=== PATIENT | male | born 1960 | race Two or more races ===

== ENCOUNTER 2017-02-15 19:54 | Inpatient (IN) | payer BC, OTHER ==
--- NOTE | 2017-02-15 20:18 | ED ---
Skin/Abscess/FB HPI - General Chief complaint: Skin/Abscess/Foreign Body Stated complaint: cyst on leg Time Seen by Provider: 02/15/17 20:10 Source: patient, RN notes reviewed, old records reviewed Mode of arrival: ambulatory Limitations: no limitations - History of Present Illness Initial comments: This is a 56-year-old male presenting to the emergency department with chief complaint of a abscess over the right side for the past 3 days. Patient was initially started with an ingrown hair. Patient reports remove the ingrown hair on Tuesday night however he noticed the redness continued to swell and become firm. Patient reports he went to his primary care provider yesterday and was started on an antibiotic that he takes 4 times a day. Patient reports that he does not know exactly what antibiotic however is most likely to be clindamycin. Patient reports that the area has not changed since taking the antibiotics. He was told to come to the emergency department if the area continued to stay the same or get worse. Patient states that he did not receive any incision and drainage at that time. Patient denies any fever or chills. He reports that there is some increased streaking up the right side.Patient denies any recent fever, chills, shortness of breath, chest pain, back pain, abdominal pain, nausea vomiting, numbness or tingling, dysuria or hematuria, constipation or diarrhea, headaches or visual changes, or any other current symptoms - Related Data Home Medications Medication Instructions Recorded Confirmed Clindamycin [Cleocin] 150 mg PO QID 02/15/17 02/15/17 Mupirocin 2% Oint [Bactroban 2% 1 applic TOPICAL BID 02/15/17 02/15/17 Oint] Allergies Allergy/AdvReac Type Severity Reaction Status Date / Time No Known Allergies Allergy Verified 02/15/17 20:08 Review of Systems ROS Statement: Those systems with pertinent positive or pertinent negative responses have been documented in the HPI. ROS Other: All systems not noted in ROS Statement are negative. Past Medical History Past Medical History: No Reported History History of Any Multi-Drug Resistant Organisms: MRSA Past Surgical History: No Surgical Hx Reported Past Psychological History: No Psychological Hx Reported Smoking Status: Current every day smoker Past Alcohol Use History: None Reported Past Drug Use History: None Reported - Past Family History Mother Family Medical History: Cancer Additional Family Medical History / Comment(s): breast Brother(s) Family Medical History: Cancer Additional Family Medical History / Comment(s): colon ca, Mesothelioma General Exam - General Exam Comments Initial Comments: This is a pleasant 56-year-old male. No acute distress. Limitations: no limitations General appearance: alert, in no apparent distress Head exam: Present: atraumatic, normocephalic, normal inspection Eye exam: Present: normal appearance, PERRL, EOMI. Absent: scleral icterus, conjunctival injection, periorbital swelling ENT exam: Present: normal exam, mucous membranes moist Neck exam: Present: normal inspection. Absent: tenderness, meningismus, lymphadenopathy Respiratory exam: Present: normal lung sounds bilaterally. Absent: respiratory distress, wheezes, rales, rhonchi, stridor Cardiovascular Exam: Present: regular rate, normal rhythm, normal heart sounds. Absent: systolic murmur, diastolic murmur, rubs, gallop, clicks GI/Abdominal exam: Present: soft, normal bowel sounds. Absent: distended, tenderness, guarding, rebound, rigid Extremities exam: Present: normal inspection, full ROM, normal capillary refill , other (Patient has a erythematous abscess over the right anterior thigh measuring approximately 6 cm x 7 cm.). Absent: tenderness, pedal edema, joint swelling, calf tenderness Back exam: Present: normal inspection Neurological exam: Present: alert, oriented X3, CN II-XII intact Psychiatric exam: Present: normal affect, normal mood Skin exam: Present: warm, dry, intact, normal color. Absent: rash Course Vital Signs 02/15/17 02/15/17 02/15/17 20:08 22:01 22:30 Temperature 98.7 F 98.4 F 98.8 F Pulse Rate 71 89 63 Respiratory 18 20 16 Rate Blood Pressure 156/81 154/79 158/89 O2 Sat by Pulse 98 100 100 Oximetry Procedures - Incision & Drainage Consent Obtained: verbal consent Indication: abscess and cellulitis Site: lower extremity (right thigh) Size (cm): 6 Anesthetic Used: lidocaine 1% Amount (mLs): 6 I&D Cleaning Method: Iodine Sterile Field Used?: Yes Scalpel Used: #11 Needle Aspiration Performed?: Yes I&D Drainage Obtained: Pus, Blood Packing: Iodoform Culture Obtained?: Yes Patient Tolerated Procedure: well, no complications Medical Decision Making - Medical Decision Making This is a 56-year-old male presenting to the emergency department with chief complaint of a abscess over the right side for the past 3 days. Patient was initially started with an ingrown hair. Patient reports remove the ingrown hair on Tuesday night however he noticed the redness continued to swell and become firm. Patient reports he went to his primary care provider yesterday and was started on an antibiotic that he takes 4 times a day. Patient reports that he does not know exactly what antibiotic however is most likely to be clindamycin. Patient reports that the area has not changed since taking the antibiotics. He was told to come to the emergency department if the area continued to stay the same or get worse. Patient states that he did not receive any incision and drainage at that time. Patient has significant cellulitis on right thigh. Patient abscess was incised and drained, and culture obtained. PAtient was packed with iodoform. PAtient case discussed with Dr. Narayan, patient will be admitted to observation and started on vancomycin. Patient agrees to admission. - Lab Data Result diagrams: 02/15/17 20:30 02/15/17 20:30 Lab Results 02/15/17 02/15/17 Range/Units 20:30 20:30 WBC 14.2 H (3.8-10.6) k/uL RBC 4.41 (4.30-5.90) m/uL Hgb 15.1 (13.0-17.5) gm/dL Hct 42.5 (39.0-53.0) % MCV 96.4 (80.0-100.0) fL MCH 34.2 (25.0-35.0) pg MCHC 35.4 (31.0-37.0) g/dL RDW 12.6 (11.5-15.5) % Plt Count 277 (150-450) k/uL Neutrophils % 75 % Lymphocytes % 16 % Monocytes % 6 % Eosinophils % 1 % Basophils % 0 % Neutrophils # 10.7 H (1.3-7.7) k/uL Lymphocytes # 2.3 (1.0-4.8) k/uL Monocytes # 0.9 (0-1.0) k/uL Eosinophils # 0.1 (0-0.7) k/uL Basophils # 0.0 (0-0.2) k/uL Sodium 143 (137-145) mmol/L Potassium 3.6 (3.5-5.1) mmol/L Chloride 108 H (98-107) mmol/L Carbon Dioxide 24 (22-30) mmol/L Anion Gap 11 mmol/L BUN 15 (9-20) mg/dL Creatinine 0.64 L (0.66-1.25) mg/dL Est GFR (MDRD) Af Amer >60 (>60 ml/min/1.73 sqM) Est GFR (MDRD) Non-Af >60 (>60 ml/min/1.73 sqM) Glucose 138 H (74-99) mg/dL Calcium 9.1 (8.4-10.2) mg/dL Total Bilirubin 0.8 (0.2-1.3) mg/dL AST 15 L (17-59) U/L ALT 18 L (21-72) U/L Alkaline Phosphatase 80 (38-126) U/L Total Protein 8.1 (6.3-8.2) g/dL Albumin 4.1 (3.5-5.0) g/dL Disposition Clinical Impression: Cellulitis of right thigh Disposition: ADMITTED IP TO THIS [facility] Condition: Stable Time of Disposition: 21:49
[2017-02-15] MEDS ORDERED: SODIUM CHLORIDE 0.9% 1,000 ML IV ONE (20:21)
[2017-02-15 21:01] LABS: Basophils % (A) 0 %; CH 34.1; CHCM 35.5; Eosinophils # (A) 0.1 k/uL (0-0.7); Eosinophils % (A) 1 %; HCT 42.5 % (39.0-53.0); HDW 2.66; HGB 15.1 gm/dL (13.0-17.5); Luc # (Auto) 0.25; Luc % (Auto) 2; Lymphocytes # (A) 2.3 k/uL (1.0-4.8); Lymphocytes % (A) 16 %; MCH 34.2 pg (25.0-35.0); MCHC 35.4 g/dL (31.0-37.0); MCV 96.4 fL (80.0-100.0); Mean Platelet Volume 7.1; Monocytes # (A) 0.9 k/uL (0-1.0); Monocytes % (A) 6 %; Neutrophils # (A) 10.7 k/uL (1.3-7.7); Neutrophils % (A) 75 %; RBC 4.41 m/uL (4.30-5.90); RDW 12.6 % (11.5-15.5); WBC 14.2 k/uL (3.8-10.6); WBC (Perox) 13.62
[2017-02-15 21:15] LABS: ALT 18 U/L (21-72); AST 15 U/L (17-59); Alkaline Phosphatase 80 U/L (38-126); Anion Gap 11 mmol/L; Blood Urea Nitrogen 15 mg/dL (9-20); Calcium 9.1 mg/dL (8.4-10.2); Carbon Dioxide 24 mmol/L (22-30); Chloride 108 mmol/L (98-107); Glucose 138 mg/dL (74-99); Non-African American GFR(MDRD) >60 (>60 ml/min/1.73 sqM); Potassium 3.6 mmol/L (3.5-5.1); Sodium 143 mmol/L (137-145); Total Bilirubin 0.8 mg/dL (0.2-1.3); Total Protein 8.1 g/dL (6.3-8.2)
[2017-02-15] MEDS ORDERED: IV VANCOMYCIN PER PHARMACY 1 EACH MISC MISCELLANE PRN (21:38)
[2017-02-15] MEDS ORDERED: VANCOMYCIN 1,500 MG in SODIUM CHLORIDE 0.9% 250 ML IVPB STA (21:41)
[2017-02-15] MEDS ORDERED: MORPHINE SULFATE 4 MG/ML SYRINGE IVP STA (21:48)
[2017-02-15] MEDS ORDERED: IBUPROFEN 400 MG TAB PO PRN (21:49)
[2017-02-15] MEDS ORDERED: ACETAMINOPHEN TAB 325 MG TAB PO PRN (21:49)
[2017-02-15] MEDS ORDERED: ONDANSETRON 4 MG/2 ML VIAL IVP PRN (21:49)
[2017-02-15] MEDS ORDERED: NALOXONE 0.4 MG/ML 1 ML VIAL IV PRN (21:49)
[2017-02-15] MEDS: SODIUM CHLORIDE 0.9% 1,000 ML IV SCH (21:58)
[2017-02-15] MEDS: KETOROLAC 30 MG/ML 1 ML VIAL IVP PRN (23:29)
[2017-02-16] MEDS: KETOROLAC 30 MG/ML 1 ML VIAL IVP PRN ×2 (06:45→18:57)
[2017-02-16] MEDS: SODIUM CHLORIDE 0.9% 1,000 ML IV SCH ×3 (06:47→21:32)
[2017-02-16] MEDS: MORPHINE SULFATE 4 MG/ML SYRINGE IV PRN ×4 (07:18→22:44)
[2017-02-16] MEDS: VANCOMYCIN 1,500 MG in SODIUM CHLORIDE 0.9% 250 ML IVPB SCH ×2 (07:18→15:17)
[2017-02-16] MEDS: ENOXAPARIN 40 MG/0.4 ML SYRINGE SQ SCH (16:49)
[2017-02-16] MEDS: NICOTINE 21MG/24HR PATCH TRANSDERM SCH (16:49)
--- NOTE | 2017-02-16 17:51 | P.GSCN ---
History of Present Illness Consult date: 02/16/17 Reason for Consult: Right thigh abscess Requesting physician: Gene Palma History of present illness: 56 Years old male presents with pain and swelling of right thigh for last 3 days. He underwent a bedside I and D in the ER yesterday. He has increasing amount of drainage and redness around the right thigh area. Patient attributes this to ingrown hair. He is not diabetic. No prior history of MRSA infections Review of Systems As stated in history of present illness Past Medical History Past Medical History: No Reported History History of Any Multi-Drug Resistant Organisms: MRSA Year Discovered:: ?? MDRO Source:: ?? Past Surgical History: No Surgical Hx Reported Past Anesthesia/Blood Transfusion Reactions: No Reported Reaction Past Psychological History: No Psychological Hx Reported Smoking Status: Current every day smoker Past Alcohol Use History: None Reported Past Drug Use History: None Reported - Past Family History Mother Family Medical History: Cancer Additional Family Medical History / Comment(s): breast Brother(s) Family Medical History: Cancer Additional Family Medical History / Comment(s): colon ca, Mesothelioma Medications and Allergies Home Medications Medication Instructions Recorded Confirmed Type Clindamycin [Cleocin] 150 mg PO QID 02/15/17 02/15/17 History Mupirocin 2% Oint [Bactroban 2% 1 applic TOPICAL BID 02/15/17 02/15/17 History Oint] Allergies Allergy/AdvReac Type Severity Reaction Status Date / Time No Known Allergies Allergy Verified 02/15/17 20:08 Surgical - Exam Vital Signs Temp Pulse Resp BP Pulse Ox 98.7 F 71 18 156/81 98 02/15/17 20:08 02/15/17 20:08 02/15/17 20:08 02/15/17 20:08 02/15/17 20:08 General: Patient is alert and oriented to time, place and person and cooperative with exam. He is not in acute distress. HEENT: No pallor, no icterus, Chest: Bilateral equal breath sounds present. No wheezes, no crackles. Cardiovascular: Regular rate and rhythm. Abdomen: Soft, nontender, nondistended. Integumentary: Bilateral lower extremity chronic venous dermatitis. No active ulcers or discharge. Neurologic: Cranial nerves II-XII intact. Strength upper and lower extremities 5/5. No focal neurologic deficits. Gait is normal. Psychiatric: No anxiety or psychosis. Skin: Right thigh has a 4 x 4 centimeters fluctuant abscess with cellulitis and purulent drainage Results - Labs 02/15/17 20:30 02/15/17 20:30 Abnormal Lab Results - Last 24 Hours (Table) 02/15/17 02/15/17 Range/Units 20:30 20:30 WBC 14.2 H (3.8-10.6) k/uL Neutrophils # 10.7 H (1.3-7.7) k/uL Chloride 108 H (98-107) mmol/L Creatinine 0.64 L (0.66-1.25) mg/dL Glucose 138 H (74-99) mg/dL AST 15 L (17-59) U/L ALT 18 L (21-72) U/L Microbiology - Last 24 Hours (Table) 02/15/17 21:42 Gram Stain - Preliminary Leg - Right Wound Culture - Preliminary Diabetes panel 02/15/17 Range/Units 20:30 Sodium 143 (137-145) mmol/L Potassium 3.6 (3.5-5.1) mmol/L Chloride 108 H (98-107) mmol/L Carbon Dioxide 24 (22-30) mmol/L BUN 15 (9-20) mg/dL Creatinine 0.64 L (0.66-1.25) mg/dL Glucose 138 H (74-99) mg/dL Calcium 9.1 (8.4-10.2) mg/dL AST 15 L (17-59) U/L ALT 18 L (21-72) U/L Alkaline Phosphatase 80 (38-126) U/L Total Protein 8.1 (6.3-8.2) g/dL Albumin 4.1 (3.5-5.0) g/dL Calcium panel 02/15/17 Range/Units 20:30 Calcium 9.1 (8.4-10.2) mg/dL Albumin 4.1 (3.5-5.0) g/dL Pituitary panel 02/15/17 Range/Units 20:30 Sodium 143 (137-145) mmol/L Potassium 3.6 (3.5-5.1) mmol/L Chloride 108 H (98-107) mmol/L Carbon Dioxide 24 (22-30) mmol/L BUN 15 (9-20) mg/dL Creatinine 0.64 L (0.66-1.25) mg/dL Glucose 138 H (74-99) mg/dL Calcium 9.1 (8.4-10.2) mg/dL Adrenal panel 02/15/17 Range/Units 20:30 Sodium 143 (137-145) mmol/L Potassium 3.6 (3.5-5.1) mmol/L Chloride 108 H (98-107) mmol/L Carbon Dioxide 24 (22-30) mmol/L BUN 15 (9-20) mg/dL Creatinine 0.64 L (0.66-1.25) mg/dL Glucose 138 H (74-99) mg/dL Calcium 9.1 (8.4-10.2) mg/dL Total Bilirubin 0.8 (0.2-1.3) mg/dL AST 15 L (17-59) U/L ALT 18 L (21-72) U/L Alkaline Phosphatase 80 (38-126) U/L Total Protein 8.1 (6.3-8.2) g/dL Albumin 4.1 (3.5-5.0) g/dL Assessment and Plan (1) Abscess of right thigh Status: Acute Plan: 1. Incision and drainage of right thigh abscess 2. Aerobic and anaerobic cultures 3. Packing using iodoform 4. Remove packing in 24-48 hours 5. CBC in a.m. 6. Continue IV antibiotics until final cultures are available
[2017-02-16] MEDS ORDERED: fentaNYL (PF) 50 MCG/ML 2 ML AMP ONE (18:16)
[2017-02-16] MEDS ORDERED: MIDAZOLAM 2 MG/2 ML VIAL ONE (18:16)
[2017-02-16] MEDS ORDERED: KETAMINE 10 MG/ML 20 ML VIAL ONE (18:16)
[2017-02-16] MEDS ORDERED: PROPOFOL 10 MG/ML 20 ML VIAL IV ONE (18:16)
[2017-02-16] MEDS ORDERED: LIDOCAINE 1%-EPI 1:100,000 20 ML VIAL SQ ONE (18:35)
[2017-02-16] MEDS ORDERED: IV FLUID CONTINUATION 700 ML IV ONE (18:36)
[2017-02-16] MEDS ORDERED: HYDROGEN PEROXIDE BOTTLE TOPICAL ONE (18:40)
--- NOTE | 2017-02-16 18:46 | P.OP ---
Date of Procedure: 02/16/17 Preoperative Diagnosis: Right thigh abscess Postoperative Diagnosis: Same Procedure(s) Performed: Incision and drainage of right thigh abscess Implants: Anesthesia: MAC Surgeon: Maria Eugenia Adams Estimated Blood Loss (ml): 5 Pathology: other Condition: stable Disposition: PACU Indications for Procedure: 56 years old male presents with right high abscess. Informed consent obtained and patient elected to undergo incision and drainage. Operative Findings: Right thigh abscess :deep subcutaneous pocket extending up to the anterior thigh fascia. Description of Procedure: The patient was brought to the operating room and placed in supine position and IV sedation was given as per anesthesia team. A timeout was performed to verify correct patient, correct procedure and correct site. 10 mL of local anesthetic was infiltrated to create a local block. A 1.5 cm skin incision was made along the previous stab incision. This was deepened through the subcu breast tissue. Large pocket of purulent material drained. Aerobic and anaerobic cultures sent. The cavity measured 3 x 2 x 1 cm and extended deep in the subcutis tissue up to the fascia. Hemostasis was checked. The cavity was irrigated with half-strength hydrogen peroxide. The cavity was then packed with iodoform. Clean dressings applied patient tolerated the procedure well and was taken to postanesthesia care unit in stable condition
--- NOTE | 2017-02-16 18:59 | HP ---
DATE OF ADMISSION: 02/15/2017 PRESENTING COMPLAINT: Right thigh abscess. HISTORY OF PRESENTING COMPLAINT: This is a 56-year-old patient of Dr. Moreno, who has an unremarkable past medical history. Patient is a smoker. Patient 5 days ago noticed a hair folliculitis on the right thigh that significantly grew. Became an abscess. Some drainage was carried out in the ER. Patient was put on IV vancomycin. Denies any fever. Tender. Did tolerate some diet. REVIEW OF SYSTEMS: CONSTITUTIONAL: None. HEENT: None. RESPIRATORY: None. CARDIOVASCULAR: None. GASTROINTESTINAL: None. GENITOURINARY: None. MUSCULOSKELETAL: Lower back pain. DERMATOLOGICAL: None. HEMATOLOGIC: None. LYMPHATICS: None. PSYCHIATRY: None. NEUROLOGICAL: None. PAST MEDICAL HISTORY: Questionable MRSA. PAST SURGICAL HISTORY: None. SOCIAL HISTORY: Smokes about 1/2 pack a day. [place] [employer] [place] No alcohol. Lives with brother. FAMILY HISTORY: Breast cancer. HOME MEDICATIONS: 1. Mupirocin 2%. 2. Bactroban topical b.i.d. 3. Clindamycin 150 mg q.i.d. ALLERGIES: None. On examination, temperature 97.9, pulse rate 55, respirations 16, blood pressure 120/60, pulse ox 98% on room air. GENERAL APPEARANCE: Sitting up, not in distress. EYES: Pupils equal. Conjunctivae normal. HEENT: Oral cavity normal. NECK: JVD not raised. Mass not palpable. RESPIRATORY: Effort normal. LUNGS: Fair air entry. CARDIOVASCULAR: First and second sounds normal. No edema. ABDOMEN: Soft. Nontender. Liver and spleen not palpable. PSYCHIATRY: Alert and oriented x3. Mood and affect normal. EXTREMITIES: Abscess on right thigh, some drainage on squeezing. INVESTIGATIONS: White count 14.2, hemoglobin 15.1, potassium 3.6. BUN 15, creatinine 0.64. ASSESSMENT: 1. Right thigh abscess started to drain with elevated white count. 2. Chronic nicotine dependence. Patient is a smoker. 3. Leukocytosis, source infection. PLAN: Given IV vancomycin. Will add scheduled antiinflammatory. Get surgical opinion to see if patient needs to be drained any further. Patient was counseled against smoking. Given a nicotine patch.
[2017-02-16] MEDS: NAPROXEN 250 MG TAB PO SCH (21:32)
[2017-02-17] MEDS: VANCOMYCIN 1,500 MG in SODIUM CHLORIDE 0.9% 250 ML IVPB SCH ×4 (00:01→23:57)
[2017-02-17] MEDS ORDERED: VANCOMYCIN TROUGH DUE 1 EACH MISC MISCELLANE ONE (07:00)
[2017-02-17] MEDS: KETOROLAC 30 MG/ML 1 ML VIAL IVP PRN ×4 (07:50→23:57)
[2017-02-17] MEDS: MORPHINE SULFATE 4 MG/ML SYRINGE IV PRN ×4 (07:52→21:03)
[2017-02-17] MEDS: NAPROXEN 250 MG TAB PO SCH ×2 (07:58→21:08)
[2017-02-17] MEDS: ENOXAPARIN 40 MG/0.4 ML SYRINGE SQ SCH (07:58)
[2017-02-17] MEDS: NICOTINE 21MG/24HR PATCH TRANSDERM SCH (07:59)
[2017-02-17 08:08] LABS: Basophils % (A) 0 %; CH 33.8; CHCM 33.8; Eosinophils # (A) 0.2 k/uL (0-0.7); Eosinophils % (A) 3 %; HCT 39.2 % (39.0-53.0); HDW 2.62; Luc # (Auto) 0.17; Luc % (Auto) 3; Lymphocytes # (A) 2.4 k/uL (1.0-4.8); Lymphocytes % (A) 35 %; MCH 33.2 pg (25.0-35.0); MCHC 33.1 g/dL (31.0-37.0); MCV 100.4 fL (80.0-100.0); Mean Platelet Volume 7.2; Monocytes # (A) 0.4 k/uL (0-1.0); Monocytes % (A) 6 %; Neutrophils # (A) 3.8 k/uL (1.3-7.7); Neutrophils % (A) 54 %; RDW 13.1 % (11.5-15.5); WBC 6.9 k/uL (3.8-10.6); WBC (Perox) 7.41
[2017-02-17 08:22] LABS: Anion Gap 6 mmol/L; Blood Urea Nitrogen 11 mg/dL (9-20); Calcium 8.5 mg/dL (8.4-10.2); Carbon Dioxide 22 mmol/L (22-30); Chloride 113 mmol/L (98-107); Glucose 93 mg/dL (74-99); Non-African American GFR(MDRD) >60 (>60 ml/min/1.73 sqM); Potassium 4.1 mmol/L (3.5-5.1); Sodium 141 mmol/L (137-145)
[2017-02-17] MEDS: SODIUM CHLORIDE 0.9% 1,000 ML IV SCH ×2 (10:53→21:07)
--- NOTE | 2017-02-17 15:40 | P.PN ---
Subjective 56-year-old seen and examined. Patient is postop on February 16 incision and drainage of right thigh abscess. Currently has a dressing which is dry to the right thigh. Patient states pain medication effective for pain control. Patient gives a history of having pain and swelling in the right thigh started 3 days ago. Patient was seen in the emergency room on the and did undergo a bedside incision and drainage. Patient stated that there was an increase amount of drainage and redness around the right thigh area. Patient contributes this occurring 20 and room here. Patient is not diabetic and has no prior history of MRSA infection Objective - Vital Signs Vital signs: Vital Signs Temp 97.9 F 02/17/17 14:45 Pulse 57 L 02/17/17 14:45 Resp 20 02/17/17 14:45 BP 136/75 02/17/17 14:45 Pulse Ox 96 02/17/17 14:45 Intake & Output 02/16/17 02/17/17 02/17/17 18:59 06:59 18:59 Intake Total 100 200 730 Output Total 5 Balance 95 200 730 Intake: IV 100 200 Intake, IV Titration 250 Amount Vancomycin 1,500 mg In 250 Sodium Chloride 0.9% 250 ml @ 125 mls/hr IVPB Q8HR [facility] Rx#:[id number] Oral 480 Output: Estimated Blood Loss 5 Other: Voiding Method Toilet Toilet # Voids 3 2 3 - Exam Physical exam Pleasant 56-year-old gentleman resting in bed no new events noted denies dizziness lightheadedness chest pain Lungs essentially clear adequate air movement Heart S1-S2 audible regular Abdomen soft nontender no nausea no vomiting distended Extremity dressing to the right thigh dry right thigh soft palpable pedal pulses right leg warm to touch adequate sensation - Labs CBC & Chem 7: 02/17/17 07:29 02/17/17 07:29 Labs: Abnormal Lab Results - Last 24 Hours (Table) 02/17/17 02/17/17 Range/Units 07:29 07:29 RBC 3.90 L (4.30-5.90) m/uL MCV 100.4 H (80.0-100.0) fL Chloride 113 H (98-107) mmol/L Creatinine 0.64 L (0.66-1.25) mg/dL Microbiology - Last 24 Hours (Table) 02/16/17 18:30 Gram Stain - Preliminary Thigh - Right Wound Culture - Preliminary 02/16/17 18:30 Anaerobic Culture - Preliminary Thigh - Right 02/15/17 20:30 Blood Culture - Preliminary Blood No Growth after 24 hours 02/15/17 21:42 Gram Stain - Preliminary Leg - Right Wound Culture - Preliminary Assessment and Plan Plan: Impression Status post incision and drainage of a right thigh abscess done on February 16 History of a bedside incision and drainage in the emergency room on February 15 failed outpatient treatment No history of MRSA Plan Follow up on the wound cultures IV antibiotics as ordered Pain control DVT and GI prophylaxis Further surgical recommendations pending Kaylynn Lopes dictating for Dr. Adams the plan of care was discussed with the attending
--- NOTE | 2017-02-17 16:44 | P.PN ---
Progress Note - Text DATE OF SERVICE: 02/17/2017 PRESENTING COMPLAINT: right thigh abscess failed outpatient treatment. INTERVAL HISTORY: This is a patient who presented with right thigh pain and cellulitis, is status post incision and drainage of right thigh abscess. Lying in bed, no acute distress, states pain is well controlled, ambulatory in the room, tolerating his diet, moved his bowels today. REVIEW OF SYSTEMS: Done for constitutional ,cardiovascular, GI, pulmonary, integument with relevant findings as above. CURRENT MEDICATIONS Motrin, Toradol, Naprosyn, nicotine patch, vancomycin. PHYSICAL EXAM: VITAL SIGNS: Temperature 97.7, pulse 51 respiratory rate 18, blood pressure 120/ 62, oxygen saturation 99% on room air. GENERAL APPEARANCE:. Lying in bed, appears comfortable. EYES: Pupils equal. Conjunctiva normal. NECK: JVD not raised. Mass not palpable. RESPIRATORY: Respiratory effort normal. Lungs clear to auscultation. CARDIOVASCULAR: First and second sounds normal. No edema. ABDOMEN: Soft. Liver and spleen not palpable. No tenderness. No mass palpable. PSYCHIATRY: Alert and oriented x3. Mood and affect normal. NEUROLOGICAL: Cranial nerves grossly intact. No facial asymmetry. Power and sensation grossly intact INTEGUMENT: Right thigh with surgical dressing in place no drainage noted on dressing. INVESTIGATIONS: White count 6.9, hemoglobin 13.0 Thigh wound culture in progress ASSESSMENT: Right thigh abscess status post incision and drainage. Chronic nicotine dependence, patient is a smoker. Leukocytosis, cultures pending. PLAN : Continue current medication and treatment plan. will follow closely PROVISIONING ANALYST statement: Patient was seen and examined by nurse practitioner Maribel Hwang in all elements of the case discussed with attending is Dr. Palma
[2017-02-17 23:27] VITALS: RESP 16
[2017-02-18] MEDS: MORPHINE SULFATE 4 MG/ML SYRINGE IV PRN (04:40)
[2017-02-18] MEDS: KETOROLAC 30 MG/ML 1 ML VIAL IVP PRN (06:28)
[2017-02-18 07:31] VITALS: BP 126/74; PULSE 50; TEMP 97.6
--- NOTE | 2017-02-18 07:38 | PN ---
DATE OF SERVICE: 02/17/2017 ATTENDING NOTE: This patient was seen and examined by me. I reviewed the note of my nurse practitioner, Ms. Hwang. Discussed and reviewed. Additional findings below. This patient right thigh abscess status post I&D. Cultures are pending. Pain is better controlled. On examination, dressing on the right eye. LUNGS: Clear. CARDIOVASCULAR: First and second sounds normal. INVESTIGATIONS: White count is normalized. ASSESSMENT: Right thigh abscess, status post I&D. PLAN: Continue with antibiotics. Await culture results. Dressing changes as per surgery. Follow.
[2017-02-18] MEDS: VANCOMYCIN 1,500 MG in SODIUM CHLORIDE 0.9% 250 ML IVPB SCH (08:15)
[2017-02-18] MEDS: NICOTINE 21MG/24HR PATCH TRANSDERM SCH (08:43)
[2017-02-18] MEDS: ENOXAPARIN 40 MG/0.4 ML SYRINGE SQ SCH (08:43)
[2017-02-18] MEDS: NAPROXEN 250 MG TAB PO SCH (08:44)
[2017-02-18 10:24] LABS: Basophils % (A) 1 %; CHCM 33.5; Eosinophils # (A) 0.2 k/uL (0-0.7); Eosinophils % (A) 4 %; HCT 42.3 % (39.0-53.0); HDW 2.58; HGB 13.8 gm/dL (13.0-17.5); Luc # (Auto) 0.08; Luc % (Auto) 1; Lymphocytes # (A) 1.4 k/uL (1.0-4.8); Lymphocytes % (A) 23 %; MCH 33.2 pg (25.0-35.0); MCHC 32.5 g/dL (31.0-37.0); Macrocytosis Slight; Mean Platelet Volume 7.2; Monocytes # (A) 0.4 k/uL (0-1.0); Monocytes % (A) 6 %; Neutrophils % (A) 66 %; RBC 4.15 m/uL (4.30-5.90); RDW 13.1 % (11.5-15.5); WBC 6.1 k/uL (3.8-10.6); WBC (Perox) 6.54
[2017-02-18 10:44] LABS: Anion Gap 9 mmol/L; Blood Urea Nitrogen 13 mg/dL (9-20); Calcium 8.8 mg/dL (8.4-10.2); Carbon Dioxide 22 mmol/L (22-30); Chloride 111 mmol/L (98-107); Glucose 98 mg/dL (74-99); Non-African American GFR(MDRD) >60 (>60 ml/min/1.73 sqM); Sodium 142 mmol/L (137-145)
[2017-02-18] MEDS: SODIUM CHLORIDE 0.9% 1,000 ML IV SCH (11:21)
--- NOTE | 2017-02-18 11:28 | P.PN ---
Subjective 56-year-old male being seen this morning pleasant cooperative states less pain in in the right thigh . Patient is postop incision and drainage of a right thigh abscess deep subcutaneous pocket extending up to the anterior thigh fascia done on February 16. The right dressing was removed from the thigh packing in place removed noted the right thigh soft less tender . A scant amount of drainage noted from the dressing . Objective - Vital Signs Vital signs: Vital Signs Temp 97.6 F 02/18/17 07:00 Pulse 50 L 02/18/17 07:00 Resp 16 02/18/17 07:00 BP 126/74 02/18/17 07:00 Pulse Ox 98 02/18/17 07:00 Intake & Output 02/17/17 02/18/17 02/18/17 18:59 06:59 18:59 Intake Total 1480 600 Balance 1480 600 Weight 77.111 kg Intake: Intake, IV Titration 1000 Amount Sodium Chloride 0.9% 1, 500 000 ml @ 100 mls/hr IV . Q10H [facility] Rx#:[id number] Vancomycin 1,500 mg In 500 Sodium Chloride 0.9% 250 ml @ 125 mls/hr IVPB Q8HR [facility] Rx#:[id number] Oral 480 600 Other: Voiding Method Toilet # Voids 3 1 - Exam Physical exam 56-year-old male sitting up in bed appears in no acute distress states less pain in the right thigh Lungs essentially clear adequate air movement on room air Heart S1-S2 audible regular denying chest pain abdomen soft nontender reports no nausea vomiting Extremities no pedal edema. Left lower extremity unremarkable. Dressing to the right thigh dry - Labs CBC & Chem 7: 02/18/17 10:06 02/17/17 07:29 Labs: Abnormal Lab Results - Last 24 Hours (Table) 02/18/17 Range/Units 10:06 RBC 4.15 L (4.30-5.90) m/uL MCV 102.0 H (80.0-100.0) fL Microbiology - Last 24 Hours (Table) 02/15/17 20:30 Blood Culture - Preliminary Blood No Growth after 48 hours 02/16/17 18:30 Gram Stain - Preliminary Thigh - Right Wound Culture - Preliminary Assessment and Plan Plan: Impression Status post incision and drainage of a right thigh abscess done on February 16 History of a bedside incision and drainage in the emergency room on February 15 failed outpatient treatment No history of MRSA Plan Follow up on the wound cultures antibiotics as ordered Pain control DVT and GI prophylaxis From a surgical perspective the patient is felt to be appropriate to be discharged defer to the timing of the discharge to the attending Wound care Aquacel AG rope to be applied to the right by puncture site change every 48 hours Follow-up with Dr. adams in 2 weeks Kaylynn Lopes dictating for Dr. Adams the plan of care was discussed with the attending
--- NOTE | 2017-02-19 22:05 | DS ---
DATE OF ADMISSION: 02/15/2017 DATE OF DISCHARGE: 02/18/2017 FINAL DIAGNOSIS(ES): 1. Acute right thigh abscess, status post I&D growing ( ) Strep. 2. Chronic nicotine dependence, the patient is a smoker. 3. Leukocytosis, secondary to abscess. HOSPITAL COURSE: This patient presented with right thigh abscess, status post I&D by Dr. Adams. It was doing better. Patient ( ) above, ( ) Streptococcus. Doing much better, up and about. On exam, lungs are clear. CARDIOVASCULAR: First and second sounds are normal. The patient right thigh incision healing well. DISCHARGE MEDICATIONS: 1. Bactroban 2% ointment topical b.i.d. 2. Naproxen 250 mg b.i.d. 20 tablets. 3. Nicotine patch. 4. Bactrim DS 1 tablet q.12 20 tablets. Follow-up with Dr. Adams on 02/22/2017, follow-up with Dr. Garcia Moreno on 02/25/2017. Labs, and CBC, BMP in one week. Discharge planning more than 35 minutes. Dressing changes per surgery.
== END 2017-02-18 11:49 | disposition home or self-care (01) | DRG 603 ==
LOC: EC 19:54 → 4MS4W 21:55 → OBSVTOIN 21:55
PROVIDERS: ADMIT Hospitalist; ATTEND Hospitalist
PROC: 0H9HXZZ Drainage of Right Upper Leg Skin, External Approach (ICD-10-PCS; 2017-02-15)
PROC: 0J9L3ZZ Drainage of Right Upper Leg Subcutaneous Tissue and Fascia, Percutaneous Approach (ICD-10-PCS; principal; 2017-02-16 17:44)
DX: L03.115 Cellulitis of right lower limb (principal); B95.4 Other streptococcus as the cause of diseases classified elsewhere; L02.415 Cutaneous abscess of right lower limb; D72.829 Elevated white blood cell count, unspecified; F17.200 Nicotine dependence, unspecified, uncomplicated; L73.1 Pseudofolliculitis barbae; M54.5 Low back pain; L73.9 Follicular disorder, unspecified; Z80.0 Family history of malignant neoplasm of digestive organs; Z80.3 Family history of malignant neoplasm of breast; Z71.6 Tobacco abuse counseling; Z86.14 Personal history of Methicillin resistant Staphylococcus aureus infection; Z80.9 Family history of malignant neoplasm, unspecified
CPT/HCPCS: 10061; 36415; 80048; 80053; 80202; 85025; 87040; 87070; 87075; 87205; 96361; 96365; 96375; 99284

== ENCOUNTER 2018-07-03 12:17 | Emergency (ER) | payer OTHER ==
[2018-07-03 12:34] VITALS: BP 179/81; PULSE 71; RESP 18; TEMP 98
[2018-07-03] MEDS ORDERED: HYDROcodone/APAP 5-325MG 1 EACH TAB PO STA (13:43)
[2018-07-03] MEDS ORDERED: TETANUS-DIPHTHERIA TOX (PF) 0.5 ML VIAL IM ONE (13:57)
--- NOTE | 2018-07-03 14:14 | ED ---
General Adult HPI - General Chief complaint: Burn/Smoke Inhalation Stated complaint: Chemical Burn Time Seen by Provider: 07/03/18 13:35 Source: patient, RN notes reviewed Mode of arrival: ambulatory Limitations: no limitations - History of Present Illness Initial comments: 58-year-old male presents to the emergency department for a chief complaint of burn 1 hour. Patient states he was at work using a car adhesive when he accidentally got glue on his left hand. Patient states he immediately tried to rip off the glue and ripped his skin off with it as it was very hot. Patient states she also got some glue on his fourth and fifth digits of his right hand. He states the hand immediately began swelling. He [facility] go to [facility] but they were unable to remove the glue so sent him to the emergency department. He denies getting glue anywhere else. He denies any other injuries. Patient has no other complaints at this time including shortness of breath, chest pain, abdominal pain, nausea or vomiting, headache, or visual changes. - Related Data Home Medications Medication Instructions Recorded Confirmed Mupirocin 2% Oint [Bactroban 2% 1 applic TOPICAL BID 02/15/17 02/15/17 Oint] Previous Rx's Medication Instructions Recorded Naproxen [Naprosyn] 250 mg PO BID #20 tab 02/18/17 Nicotine 21Mg/24Hr Patch [Habitrol] 1 patch TRANSDERM DAILY #14 patch 02/18/17 Sulfamethox-Tmp 800-160Mg [Bactrim 1 tab PO Q12HR #20 tab 02/18/17 DS 800-160 mg] HYDROcodone/APAP 5-325MG [[place] 1 tab PO Q6HR PRN #10 tab 07/03/18 5-325] SILVER sulfADIAZINE Cream 1 applic TOPICAL BID #100 gram 07/03/18 [Silvadene 1% Cream] Allergies Allergy/AdvReac Type Severity Reaction Status Date / Time No Known Allergies Allergy Verified 07/03/18 12:33 Review of Systems ROS Statement: Those systems with pertinent positive or pertinent negative responses have been documented in the HPI. ROS Other: All systems not noted in ROS Statement are negative. Past Medical History Past Medical History: No Reported History History of Any Multi-Drug Resistant Organisms: MRSA Date of last positivie culture/infection: 09/04/09 MDRO Source:: Unknown Past Surgical History: No Surgical Hx Reported Past Anesthesia/Blood Transfusion Reactions: No Reported Reaction Past Psychological History: No Psychological Hx Reported Smoking Status: Current every day smoker Past Alcohol Use History: None Reported Past Drug Use History: None Reported - Past Family History Mother Family Medical History: Cancer Additional Family Medical History / Comment(s): breast Brother(s) Family Medical History: Cancer Additional Family Medical History / Comment(s): colon ca, Mesothelioma General Exam Limitations: no limitations General appearance: alert, in no apparent distress Head exam: Present: atraumatic, normocephalic, normal inspection Eye exam: Present: normal appearance, PERRL, EOMI. Absent: scleral icterus, conjunctival injection, periorbital swelling ENT exam: Present: normal exam, mucous membranes moist Neck exam: Present: normal inspection. Absent: tenderness, meningismus, lymphadenopathy Respiratory exam: Present: normal lung sounds bilaterally. Absent: respiratory distress, wheezes, rales, rhonchi, stridor Cardiovascular Exam: Present: regular rate, normal rhythm, normal heart sounds. Absent: systolic murmur, diastolic murmur, rubs, gallop, clicks GI/Abdominal exam: Present: soft, normal bowel sounds. Absent: distended, tenderness, guarding, rebound, rigid Extremities exam: Present: tenderness (Tenderness of left hand as well as right fourth and fifth digits), normal capillary refill (Capillary refill less than 2 seconds and radial pulse 2+ in the left upper extremity.), other (Patient has glue on the dorsal radial aspect of left hand extending into the palmar aspect. There is mild avulsion of skin of the dorsum. Serous weeping present. No evidence of infection such as cellulitic changes or purulent drainage. Underlying skin is erythematous. Patient also has minor vesicles noted to the fourth and fifth digit about 1 cm x 1 cm.). Absent: full ROM (She does have flexion and extension of all digits but is unable to make a fist due to pain and swelling at this time.) Neurological exam: Present: alert, oriented X3, CN II-XII intact Psychiatric exam: Present: normal affect, normal mood Course Vital Signs 07/03/18 12:32 Temperature 98 F Pulse Rate 71 Respiratory 18 Rate Blood Pressure 179/81 O2 Sat by Pulse 96 Oximetry Medical Decision Making - Medical Decision Making 58-year-old male presents to the emergency department for a chief complaint of burn is 1 hour. Patient had an incident with a glue gun at work and did get hot glue on the dorsum of his left hand extending into the palmar aspect. Patient did go to [facility] and had Silvadene applied. On exam patient does have glue noted to the dorsum of the hand as well as a partial thickness burn. Underlying skin is erythematous with serous drainage and is tender. Glue was able to be removed with forceps without significant difficulty. Wound was covered with Silvadene and covered with nonstick gauze. Patient was given a prescription for Silvadene to apply twice daily and he will rewrap it twice daily as well which he is aware of. He will continue the Silvadene. He will monitor for any signs of infection and return if these occur. Dr. Sullivan also saw the patient. Disposition Clinical Impression: Burn Disposition: HOME SELF-CARE Condition: Good Additional Instructions: Please clean wound at least once per day. Please apply Silvadene and rewrap twice per day. Please monitor for any signs of infection such as spreading or streaking redness or purulent drainage and return if this occurs. Follow-up with primary care in 1-2 days. Return to the emergency department if you have any worsening symptoms. Prescriptions: HYDROcodone/APAP 5-325MG [[place] 5-325] 1 tab PO Q6HR PRN #10 tab PRN Reason: Pain SILVER sulfADIAZINE Cream [Silvadene 1% Cream] 1 applic TOPICAL BID #100 gram Is patient prescribed a controlled substance at d/c from ED?: No Referrals: Garcia Moreno DO [Primary Care Provider] - 1-2 days Time of Disposition: 14:09
== END 2018-07-03 15:40 | disposition home or self-care (01) ==
LOC: EC 12:17
DX: T52.8X1A Toxic effect of other organic solvents, accidental (unintentional), initial encounter (principal); T23.552A Corrosion of first degree of left palm, initial encounter; T32.0 Corrosions involving less than 10% of body surface; F17.200 Nicotine dependence, unspecified, uncomplicated; Z23 Encounter for immunization; Z86.14 Personal history of Methicillin resistant Staphylococcus aureus infection; Y92.69 Other specified industrial and construction area as the place of occurrence of the external cause; Y99.0 Civilian activity done for income or pay
CPT/HCPCS: 16000; 90471; 90714; 99283

== ENCOUNTER 2018-07-07 15:39 | Emergency (ER) | payer OTHER ==
[2018-07-07 15:49] VITALS: RESP 18
--- NOTE | 2018-07-07 16:04 | ED ---
General Adult HPI - General Chief complaint: Recheck/Abnormal Lab/Rx Stated complaint: hand injury Source: patient Mode of arrival: ambulatory Limitations: no limitations - History of Present Illness Initial comments: Dictation was produced using [employer] dictation software. please excuse any grammatical, word or spelling errors. Chief Complaint: 58-year-old male with no significant past medical history presents with swelling to the left hand. 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 States that he burned his hand with hot glue on Tuesday. Patient had his burn evaluated after the event. He went for a follow-up appointment with [facility] earlier today and was told to come to the emergency department for concerns of infection. Patient has any constitutional symptoms. He does report that over the last 48 hours he had significant swelling to his left upper extremity from the mid forearm down to the PIPs. He also does report worsening pain. The ROS documented in this emergency department record has been reviewed and confirmed by me. Those systems with pertinent positive or negative responses have been documented in the HPI. All other systems are other negative and/or noncontributory. - Related Data Previous Rx's Medication Instructions Recorded HYDROcodone/APAP 5-325MG [[place] 1 tab PO Q4HR PRN 3 Days #18 tab 07/07/18 5-325] Allergies Allergy/AdvReac Type Severity Reaction Status Date / Time No Known Allergies Allergy Verified 07/07/18 16:24 Review of Systems ROS Statement: Those systems with pertinent positive or pertinent negative responses have been documented in the HPI. ROS Other: All systems not noted in ROS Statement are negative. Past Medical History Past Medical History: No Reported History History of Any Multi-Drug Resistant Organisms: MRSA Date of last positivie culture/infection: 09/04/09 MDRO Source:: Unknown Past Surgical History: No Surgical Hx Reported Past Anesthesia/Blood Transfusion Reactions: No Reported Reaction Past Psychological History: No Psychological Hx Reported Smoking Status: Current every day smoker Past Alcohol Use History: None Reported Past Drug Use History: None Reported - Past Family History Mother Family Medical History: Cancer Additional Family Medical History / Comment(s): breast Brother(s) Family Medical History: Cancer Additional Family Medical History / Comment(s): colon ca, Mesothelioma General Exam - General Exam Comments Initial Comments: PHYSICAL EXAM: General Impression: Alert and oriented x3, not in acute distress HEENT: Normocephalic atraumatic, extra-ocular movements intact, pupils equal and reactive to light bilaterally, mucous membranes moist. Cardiovascular: Heart regular rate and rhythm, S1&S2 audible, no murmurs, rubs or gallops Chest: Lungs clear to auscultation bilaterally, no rhonchi, no wheeze, no rales Abdomen: Bowel sounds present, abdomen soft, non-tender, non-distended, no organomegaly Musculoskeletal: Pulses present and equal in all extremities, no peripheral edema Motor: Power 5/5 bilaterally, no focal deficits noted Neurological: CN II-XII grossly intact, no focal motor or sensory deficits noted Skin: Less than 1% second-degree burn to the dorsum of the left hand. None of the doan are circumferential. He does have some blistering to the radial index finger. Skin is warm to the touch. No significant erythema in the area. There is pitting edema Psych: Normal affect and mood Limitations: no limitations Course Vital Signs 07/07/18 15:45 Temperature 97.9 F Pulse Rate 63 Respiratory 18 Rate Blood Pressure 161/88 O2 Sat by Pulse 100 Oximetry Medical Decision Making - Medical Decision Making ED course: 58-year-old male presents from [employer] [facility] for evaluation of left hand wound. Vital signs upon arrival shows blood pressure 161/88, rest of vital signs within acceptable limits. His examination does not elicit any palpable crepitus. X-ray was obtained showing findings within normal limits. Labs were obtained showing no acute processes. This point patient is having dependent edema of the left upper extremity. No overt signs of infection at this time. At this point I would withhold any antibiotic treatment. However patient must be followed up with burn specialist. Patient given follow-up information for [facility] burn clinic. Patient given prescription for [place] for pain control. - Lab Data Result diagrams: 07/07/18 17:13 07/07/18 17:13 Lab Results 07/07/18 07/07/18 Range/Units 17:13 17:13 WBC 6.7 (3.8-10.6) k/uL RBC 4.65 (4.30-5.90) m/uL Hgb 15.6 (13.0-17.5) gm/dL Hct 46.4 (39.0-53.0) % MCV 99.9 (80.0-100.0) fL MCH 33.6 (25.0-35.0) pg MCHC 33.7 (31.0-37.0) g/dL RDW 12.7 (11.5-15.5) % Plt Count 219 (150-450) k/uL Neutrophils % 63 % Lymphocytes % 23 % Monocytes % 7 % Eosinophils % 4 % Basophils % 1 % Neutrophils # 4.2 (1.3-7.7) k/uL Lymphocytes # 1.5 (1.0-4.8) k/uL Monocytes # 0.5 (0-1.0) k/uL Eosinophils # 0.3 (0-0.7) k/uL Basophils # 0.0 (0-0.2) k/uL Sodium 142 (137-145) mmol/L Potassium 4.5 (3.5-5.1) mmol/L Chloride 108 H (98-107) mmol/L Carbon Dioxide 23 (22-30) mmol/L Anion Gap 11 mmol/L BUN 12 (9-20) mg/dL Creatinine 0.65 L (0.66-1.25) mg/dL Est GFR (CKD-EPI)AfAm >90 (>60 ml/min/1.73 sqM) Est GFR (CKD-EPI)NonAf >90 (>60 ml/min/1.73 sqM) Glucose 101 H (74-99) mg/dL Calcium 9.3 (8.4-10.2) mg/dL Disposition Clinical Impression: Burn Disposition: HOME SELF-CARE Condition: Good Instructions: Second Degree Burn (ED) Additional Instructions: [facility] [address] [place] [id number] Burn, 6B: Wound Care, 2Z: Prescriptions: HYDROcodone/APAP 5-325MG [[place] 5-325] 1 tab PO Q4HR PRN 3 Days #18 tab PRN Reason: Pain Is patient prescribed a controlled substance at d/c from ED?: Yes Referrals: Garcia Moreno DO [Primary Care Provider] - 1-2 days Time of Disposition: 17:46
--- NOTE | 2018-07-07 16:38 | XR ---
EXAMINATION TYPE: XR hand complete LT DATE OF EXAM: 07/07/2018 COMPARISON: NONE HISTORY: Burned with hot glue. Pain. TECHNIQUE: 3 views FINDINGS: I see no fracture nor dislocation. Joint spaces are fairly normal. There are no erosions. I see no focal bone destruction. There is slight hyperextension deformity of the MP joint of the thumb . IMPRESSION: No acute abnormality of the left hand. No sign of osteomyelitis.
[2018-07-07 17:24] LABS: Basophils % (A) 1 %; Eosinophils # (A) 0.3 k/uL (0-0.7); Eosinophils % (A) 4 %; HCT 46.4 % (39.0-53.0); HGB 15.6 gm/dL (13.0-17.5); Lymphocytes # (A) 1.5 k/uL (1.0-4.8); Lymphocytes % (A) 23 %; MCH 33.6 pg (25.0-35.0); MCHC 33.7 g/dL (31.0-37.0); MCV 99.9 fL (80.0-100.0); Mean Platelet Volume 7.5; Monocytes # (A) 0.5 k/uL (0-1.0); Monocytes % (A) 7 %; Neutrophils # (A) 4.2 k/uL (1.3-7.7); Neutrophils % (A) 63 %; Platelet Count 219 k/uL (150-450); RBC 4.65 m/uL (4.30-5.90); RDW 12.7 % (11.5-15.5); WBC 6.7 k/uL (3.8-10.6)
[2018-07-07 17:33] LABS: Anion Gap 11 mmol/L; Blood Urea Nitrogen 12 mg/dL (9-20); Calcium 9.3 mg/dL (8.4-10.2); Carbon Dioxide 23 mmol/L (22-30); Chloride 108 mmol/L (98-107); Glucose 101 mg/dL (74-99); Potassium 4.5 mmol/L (3.5-5.1); Sodium 142 mmol/L (137-145)
[2018-07-07] MEDS: KETOROLAC 30 MG/ML 1 ML VIAL IM STA (18:01)
[2018-07-07 18:08] VITALS: BP 168/98; PULSE 54; TEMP 98
== END 2018-07-07 18:06 | disposition home or self-care (01) ==
LOC: EC 15:39
DX: T23.262A Burn of second degree of back of left hand, initial encounter (principal); T31.0 Burns involving less than 10% of body surface; F17.200 Nicotine dependence, unspecified, uncomplicated; Z86.14 Personal history of Methicillin resistant Staphylococcus aureus infection; X19.XXXA Contact with other heat and hot substances, initial encounter; Y92.69 Other specified industrial and construction area as the place of occurrence of the external cause; Y99.0 Civilian activity done for income or pay
CPT/HCPCS: 36415; 80048; 85025; 96372; 99283

== ENCOUNTER 2022-03-09 15:03 | Emergency (ER) | payer OTHER ==
[2022-03-09 15:24] VITALS: TEMP 97
[2022-03-09] MEDS ORDERED: SODIUM CHLORIDE 0.9% 500 ML 500 ML IV STA (16:06)
[2022-03-09] MEDS ORDERED: amLODIPine 10 MG TAB PO STA (16:07)
[2022-03-09 17:04] LABS: Basophils # (A) 0.1 k/uL (0-0.2); Basophils % (A) 1 %; Eosinophils # (A) 0.4 k/uL (0-0.7); Eosinophils % (A) 6 %; HCT 42.8 % (39.0-53.0); HGB 14.7 gm/dL (13.0-17.5); Lymphocytes # (A) 1.8 k/uL (1.0-4.8); Lymphocytes % (A) 27 %; MCHC 34.3 g/dL (31.0-37.0); MCV 101.9 fL (80.0-100.0); Monocytes # (A) 0.6 k/uL (0-1.0); Monocytes % (A) 8 %; Neutrophils # (A) 3.7 k/uL (1.3-7.7); Neutrophils % (A) 55 %; Platelet Count 199 k/uL (150-450); RBC 4.21 m/uL (4.30-5.90); RDW 12.5 % (11.5-15.5); WBC 6.7 k/uL (3.8-10.6)
[2022-03-09 17:16] LABS: Prothrombin Time 11.3 sec (9.0-12.0)
[2022-03-09 17:28] LABS: ALT 33 U/L (4-49); AST 33 U/L (17-59); African American GFR (CKD) >90 (>60 ml/min/1.73 sqM); Albumin 4.3 g/dL (3.5-5.0); Alkaline Phosphatase 76 U/L (38-126); Anion Gap 9 mmol/L; Blood Urea Nitrogen 17 mg/dL (9-20); Calcium 8.6 mg/dL (8.4-10.2); Carbon Dioxide 25 mmol/L (22-30); Chloride 106 mmol/L (98-107); Glucose 118 mg/dL (74-99); Magnesium 2.1 mg/dL (1.6-2.3); Non-African American GFR(CKD) >90 (>60 ml/min/1.73 sqM); Potassium 4.2 mmol/L (3.5-5.1); Sodium 140 mmol/L (137-145); Total Bilirubin 0.4 mg/dL (0.2-1.3); Total Protein 8.1 g/dL (6.3-8.2)
--- NOTE | 2022-03-09 17:41 | XR ---
EXAMINATION TYPE: XR chest 1V portable DATE OF EXAM: 03/09/2022 COMPARISON: 05/14/2014 HISTORY: Dizziness TECHNIQUE: FINDINGS: Heart is normal. Lungs are clear of consolidation. There are no hilar masses. There are lou st leads. Costophrenic angles are clear. Bony thorax is intact. IMPRESSION: No active cardiopulmonary disease. Normal heart. No change.
--- NOTE | 2022-03-09 18:11 | CT ---
EXAMINATION TYPE: CT brain wo con DATE OF EXAM: 03/09/2022 COMPARISON: None HISTORY: high BP CT DLP: 1139.4 mGycm Automated exposure control for dose reduction was used. Ventricles have normal size. There is no mass effect or midline shift. No sign of intracranial hemorr zion. Calvarium is intact. Skull base is intact. There is some minimal small hypodense areas in the f rontal lobe white matter. IMPRESSION: Possible microvascular ischemia. No acute intracranial abnormality.
--- NOTE | 2022-03-09 18:36 | ED ---
General Adult HPI - General Chief complaint: Recheck/Abnormal Lab/Rx Stated complaint: High Blood Pressure Time Seen by Provider: 03/09/22 15:47 Source: patient Mode of arrival: ambulatory Limitations: no limitations - History of Present Illness Initial comments: Patient complains of an episode of lightheadedness. This was a couple days ago. His blood pressure is elevated. He has no chest pain or shortness of breath. He has no belly or back pain. He has no nausea or vomiting. He currently has no lightheadedness or any other symptoms. He has no neck pain or stiffness. He has no change in vision or hearing. - Related Data Home Medications Medication Instructions Recorded Confirmed Methadone Intensol 1 dose PO DAILY 03/09/22 03/09/22 Previous Rx's Medication Instructions Recorded amLODIPine [Norvasc] 5 mg PO DAILY #30 tab 03/09/22 Allergies Allergy/AdvReac Type Severity Reaction Status Date / Time No Known Allergies Allergy Verified 03/09/22 17:39 Review of Systems ROS Statement: Those systems with pertinent positive or pertinent negative responses have been documented in the HPI. ROS Other: All systems not noted in ROS Statement are negative. 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 Date of last positivie culture/infection: 09/04/09 MDRO Source:: Unknown Past Surgical History: No Surgical Hx Reported Past Anesthesia/Blood Transfusion Reactions: No Reported Reaction Past Psychological History: No Psychological Hx Reported Past Alcohol Use History: None Reported Past Drug Use History: None Reported - Past Family History Mother Family Medical History: Cancer Additional Family Medical History / Comment(s): breast Brother(s) Family Medical History: Cancer Additional Family Medical History / Comment(s): colon ca, Mesothelioma General Exam Limitations: no limitations General appearance: alert, in no apparent distress Head exam: Present: atraumatic, normocephalic, normal inspection Eye exam: Present: normal appearance, PERRL, EOMI. Absent: scleral icterus, conjunctival injection, periorbital swelling ENT exam: Present: normal exam, mucous membranes moist Neck exam: Present: normal inspection. Absent: tenderness, meningismus, lymphadenopathy Respiratory exam: Present: normal lung sounds bilaterally. Absent: respiratory distress, wheezes, rales, rhonchi, stridor Cardiovascular Exam: Present: regular rate, normal rhythm, normal heart sounds. Absent: systolic murmur, diastolic murmur, rubs, gallop, clicks GI/Abdominal exam: Present: soft, normal bowel sounds. Absent: distended, tenderness, guarding, rebound, rigid Extremities exam: Present: normal inspection, full ROM, normal capillary refill. Absent: tenderness, pedal edema, joint swelling, calf tenderness Back exam: Present: normal inspection Neurological exam: Present: alert, oriented X3, CN II-XII intact Psychiatric exam: Present: normal affect, normal mood Skin exam: Present: warm, dry, intact, normal color. Absent: rash Course Vital Signs 03/09/22 03/09/22 15:22 16:06 Temperature 97.0 F L Pulse Rate 75 55 L Respiratory 18 16 Rate Blood Pressure 178/92 161/86 O2 Sat by Pulse 98 95 Oximetry EKG Findings - EKG Comments: EKG Findings:: Twelve-lead EKG shows ventricular rate 54 bpm, normal AL interval and QRS complexes, no ST elevation or depression, interpreted by me as sinus bradycardia. Medical Decision Making - Medical Decision Making Patient complains of some lightheadedness. His exam is unremarkable. Workup is unremarkable. CT shows chronic microvascular changes. Patient remained symptom-free throughout his stay in the emergency department. He is stable for discharge. - Lab Data Result diagrams: 03/09/22 16:18 03/09/22 16:18 Lab Results 03/09/22 03/09/22 03/09/22 Range/Units 16:18 16:18 16:18 WBC 6.7 (3.8-10.6) k/uL RBC 4.21 L (4.30-5.90) m/uL Hgb 14.7 (13.0-17.5) gm/dL Hct 42.8 (39.0-53.0) % MCV 101.9 H (80.0-100.0) fL MCH 35.0 (25.0-35.0) pg MCHC 34.3 (31.0-37.0) g/dL RDW 12.5 (11.5-15.5) % Plt Count 199 (150-450) k/uL MPV 8.0 Neutrophils % 55 % Lymphocytes % 27 % Monocytes % 8 % Eosinophils % 6 % Basophils % 1 % Neutrophils # 3.7 (1.3-7.7) k/uL Lymphocytes # 1.8 (1.0-4.8) k/uL Monocytes # 0.6 (0-1.0) k/uL Eosinophils # 0.4 (0-0.7) k/uL Basophils # 0.1 (0-0.2) k/uL PT 11.3 (9.0-12.0) sec INR 1.0 (<1.2) Sodium 140 (137-145) mmol/L Potassium 4.2 (3.5-5.1) mmol/L Chloride 106 (98-107) mmol/L Carbon Dioxide 25 (22-30) mmol/L Anion Gap 9 mmol/L BUN 17 (9-20) mg/dL Creatinine 0.89 (0.66-1.25) mg/dL Est GFR (CKD-EPI)AfAm >90 (>60 ml/min/1.73 sqM) Est GFR (CKD-EPI)NonAf >90 (>60 ml/min/1.73 sqM) Glucose 118 H (74-99) mg/dL Calcium 8.6 (8.4-10.2) mg/dL Magnesium 2.1 (1.6-2.3) mg/dL Total Bilirubin 0.4 (0.2-1.3) mg/dL AST 33 (17-59) U/L ALT 33 (4-49) U/L Alkaline Phosphatase 76 (38-126) U/L Troponin I (0.000-0.034) ng/mL Total Protein 8.1 (6.3-8.2) g/dL Albumin 4.3 (3.5-5.0) g/dL 03/09/22 Range/Units 16:18 WBC (3.8-10.6) k/uL RBC (4.30-5.90) m/uL Hgb (13.0-17.5) gm/dL Hct (39.0-53.0) % MCV (80.0-100.0) fL MCH (25.0-35.0) pg MCHC (31.0-37.0) g/dL RDW (11.5-15.5) % Plt Count (150-450) k/uL MPV Neutrophils % % Lymphocytes % % Monocytes % % Eosinophils % % Basophils % % Neutrophils # (1.3-7.7) k/uL Lymphocytes # (1.0-4.8) k/uL Monocytes # (0-1.0) k/uL Eosinophils # (0-0.7) k/uL Basophils # (0-0.2) k/uL PT (9.0-12.0) sec INR (<1.2) Sodium (137-145) mmol/L Potassium (3.5-5.1) mmol/L Chloride (98-107) mmol/L Carbon Dioxide (22-30) mmol/L Anion Gap mmol/L BUN (9-20) mg/dL Creatinine (0.66-1.25) mg/dL Est GFR (CKD-EPI)AfAm (>60 ml/min/1.73 sqM) Est GFR (CKD-EPI)NonAf (>60 ml/min/1.73 sqM) Glucose (74-99) mg/dL Calcium (8.4-10.2) mg/dL Magnesium (1.6-2.3) mg/dL Total Bilirubin (0.2-1.3) mg/dL AST (17-59) U/L ALT (4-49) U/L Alkaline Phosphatase (38-126) U/L Troponin I <0.012 (0.000-0.034) ng/mL Total Protein (6.3-8.2) g/dL Albumin (3.5-5.0) g/dL Disposition Clinical Impression: Hypertension Disposition: HOME SELF-CARE Condition: Good Instructions (If sedation given, give patient instructions): Hypertension (ED) Prescriptions: amLODIPine [Norvasc] 5 mg PO DAILY #30 tab Is patient prescribed a controlled substance at d/c from ED?: No Referrals: Garcia Moreno DO [Primary Care Provider] - 1-2 days
[2022-03-09 19:13] VITALS: BP 195/103; PULSE 98; RESP 18
== END 2022-03-09 19:13 | disposition home or self-care (01) ==
LOC: EC 15:03
DX: I10 Essential (primary) hypertension (principal)
CPT/HCPCS: 36415; 70450; 71045; 80053; 83735; 84484; 85025; 85610; 93005; 99284

== ENCOUNTER 2022-09-21 13:25 | Emergency (ER) | payer OTHER ==
[2022-09-21 13:29] VITALS: RESP 18; TEMP 97.7
[2022-09-21] MEDS ORDERED: KETOROLAC 15 MG/ML 1 ML VIAL IM STA (14:13)
[2022-09-21] MEDS ORDERED: ACYCLOVIR 800 MG TAB PO STA (14:15)
--- NOTE | 2022-09-21 14:19 | ED ---
General Adult HPI - General Chief complaint: Skin/Abscess/Foreign Body Stated complaint: shingles Time Seen by Provider: 09/21/22 14:02 Source: patient Mode of arrival: ambulatory Limitations: no limitations - History of Present Illness Initial comments: Patient is 62-year-old male who presents for evaluation of rash. Rash started a few days ago. Patient did report headache and pain in the area prior to rash. The rash is both painful and itchy. It is on his left chest and neck. No fever, upper respiratory symptoms, earache, hearing loss, blurry vision, eye pain, facial paralysis. No new medications. Patient does have history of chickenpox. - Related Data Home Medications Medication Instructions Recorded Confirmed Methadone Intensol 1 dose PO DAILY 03/09/22 03/09/22 Previous Rx's Medication Instructions Recorded amLODIPine [Norvasc] 5 mg PO DAILY #30 tab 03/09/22 Acyclovir 800 mg PO 5XD #35 tab 09/21/22 Ibuprofen [Motrin] 800 mg PO Q8HR PRN #30 tab 09/21/22 amLODIPine [Norvasc] 5 mg PO DAILY #14 tab 09/21/22 Allergies Allergy/AdvReac Type Severity Reaction Status Date / Time No Known Allergies Allergy Verified 09/21/22 13:29 Review of Systems ROS Statement: Those systems with pertinent positive or pertinent negative responses have been documented in the HPI. ROS Other: All systems not noted in ROS Statement are negative. 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 Date of last positivie culture/infection: 09/04/09 MDRO Source:: Unknown Past Surgical History: No Surgical Hx Reported Past Anesthesia/Blood Transfusion Reactions: No Reported Reaction Past Psychological History: No Psychological Hx Reported Past Alcohol Use History: None Reported Past Drug Use History: None Reported - Past Family History Mother Family Medical History: Cancer Additional Family Medical History / Comment(s): breast Brother(s) Family Medical History: Cancer Additional Family Medical History / Comment(s): colon ca, Mesothelioma General Exam Limitations: no limitations General appearance: alert, in no apparent distress Head exam: Present: atraumatic, normocephalic, normal inspection Eye exam: Present: normal appearance, PERRL, EOMI. Absent: scleral icterus, conjunctival injection, periorbital swelling ENT exam: Present: normal oropharynx, TM's normal bilaterally Respiratory exam: Present: normal lung sounds bilaterally. Absent: respiratory distress, wheezes, rales, rhonchi, stridor Cardiovascular Exam: Present: regular rate, normal rhythm, normal heart sounds. Absent: systolic murmur, diastolic murmur, rubs, gallop, clicks Neurological exam: Present: alert, oriented X3, CN II-XII intact Psychiatric exam: Present: normal affect, normal mood Skin exam: Present: warm, dry, intact, normal color, rash (shingles over left chest, left anterior/lateral/posterior neck ) Course Vital Signs 09/21/22 09/21/22 13:26 14:43 Temperature 97.7 F Pulse Rate 69 58 L Respiratory 18 18 Rate Blood Pressure 196/86 183/97 O2 Sat by Pulse 99 97 Oximetry Medical Decision Making - Medical Decision Making Was pt. sent in by a medical professional or institution (, PA, [facility], urgent care, hospital, or [facility]...) When possible be specific @ -No Did you speak to anyone other than the patient for history (EMS, parent, family, police, friend...)? What history was obtained from this source @ -No Did you review nursing and triage notes (agree or disagree)? Why? @ -I reviewed and agree with nursing and triage notes Were old charts reviewed (outside hosp., previous admission, EMS record, old EKG, old radiological studies, urgent care reports/EKG's, [facility] records)? Report findings @ -No old charts were reviewed Differential Diagnosis (chest pain, altered mental status, abdominal pain women, abdominal pain men, vaginal bleeding, weakness, fever, dyspnea, syncope, headache, dizziness, GI bleed, back pain, seizure, CVA, palpatations, mental health)? @ -shingles, cellulitis, drug reaction EKG interpreted by me (3pts min.). @ -As above X-rays interpreted by me (1pt min.). @ -None done CT interpreted by me (1pt min.). @ -None done U/S interpreted by me (1pt. min.). @ -None done What testing was considered but not performed or refused? (CT, X-rays, U/S, labs)? Why? @ -None What meds were considered but not given or refused? Why? @ -None Did you discuss the management of the patient with other professionals (professionals i.e. , PA, [employer], lab, RT, psych nurse, social media editor, dural mechanic, teacher, armor officer, case supervisor)? Give summary @ -No Was smoking cessation discussed for >3mins.? @ -No Was critical care preformed (if so, how long)? @ -No Were there social determinants of health that impacted care today? How? (Homelessness, low income, unemployed, alcoholism, drug addiction, transportation, low edu. Level, literacy, decrease access to med. care, half-way, rehab)? @ -No Was there de-escalation of care discussed even if they declined (Discuss DNR or withdrawal of care, Hospice)? DNR status @ -No What co-morbidities impacted this encounter? (DM, HTN, Smoking, COPD, CAD, Cancer, CVA, ARF, Chemo, Hep., AIDS, mental health diagnosis, sleep apnea, morbid obesity)? @ -HTN Was patient admitted / discharged? Hospital course, mention meds given and route, prescriptions, significant lab abnormalities, going to OR and other pertinent info. @ -This is a 62-year-old presenting with a rash. The rash resembles shingles. No eye or ear involvement. Patient will be discharged with pain medication and acyclovir. Patient also states he is currently switching to a new primary care provider and is out of his blood pressure medication. Patient takes amlodipine 5 mg daily. His pressure is elevated today. No chest pain or shortness of breath. Will discharge him with 2 weeks this prescription. Undiagnosed new problem with uncertain prognosis? @ -No Drug Therapy requiring intensive monitoring for toxicity (Heparin, Nitro, Insulin, Cardizem)? @ -No Were any procedures done? @ -No Diagnosis/symptom? @ -shingles Acute, or Chronic, or Acute on Chronic? @ -acute Uncomplicated (without systemic symptoms) or Complicated (systemic symptoms)? @ -uncomplicated Side effects of treatment? @ -No Exacerbation, Progression, or Severe Exacerbation? @ -No Poses a threat to life or bodily function? How? (Chest pain, [place], [place], pneumonia, PE, COPD, DKA, ARF, appy, cholecystitis, CVA, Diverticulitis, Homicidal, Suicidal, threat to staff... and all critical care pts) @ -No Diagnosis/symptom? @ -Hypertension Acute, or Chronic, or Acute on Chronic? @ -Acute on chronic Uncomplicated (without systemic symptoms) or Complicated (systemic symptoms)? @ Uncomplicated Side effects of treatment? @ -none Exacerbation, Progression, or Severe Exacerbation] @ -no Poses a threat to life or bodily function? @ -no Dr. Arroyo is my attending. Disposition Clinical Impression: Shingles Disposition: HOME SELF-CARE Condition: Good Instructions (If sedation given, give patient instructions): Shingles (ED) Additional Instructions: Take medication as directed. Benadryl can use for itching. Follow up with brim blocker in one to 2 days. Return to the emergency department if you experience new, concerning, or worsening symptoms. Prescriptions: Acyclovir 800 mg PO 5XD #35 tab Ibuprofen [Motrin] 800 mg PO Q8HR PRN #30 tab PRN Reason: Pain amLODIPine [Norvasc] 5 mg PO DAILY #14 tab Is patient prescribed a controlled substance at d/c from ED?: No Referrals: None,Stated [Primary Care Provider] - 1-2 days Gertrudis Roque MD [STAFF PHYSICIAN] - 1-2 days
[2022-09-21 14:48] VITALS: BP 183/97; PULSE 58
== END 2022-09-21 15:01 | disposition home or self-care (01) ==
LOC: EC 13:25
DX: B02.9 Zoster without complications (principal)
CPT/HCPCS: 99283; 96372; J1885

== ENCOUNTER 2022-10-02 09:57 | Emergency (ER) | payer OTHER ==
[2022-10-02] MEDS ORDERED: methylPREDNISolone SOD SUCCI 125 MG/2 ML VIAL IV STA (10:17)
[2022-10-02] MEDS ORDERED: ALBUTEROL HFA INHALER INHALATION STA (10:17)
[2022-10-02] MEDS ORDERED: MAGNESIUM SULFATE-D5W PMX 1 GM in DEXTROSE/WATER 1 100ML.BAG IVPB ONE (10:18)
--- NOTE | 2022-10-02 10:42 | XR ---
EXAMINATION TYPE: XR chest 2V DATE OF EXAM: 10/02/2022 10:36 AM COMPARISON: Chest radiographs from 03/09/2022 TECHNIQUE: XR chest 2V Frontal and lateral views of the chest. CLINICAL INDICATION:Male, 62 years old with history of difficulty breathing; FINDINGS: Lungs/Pleura: There is flattening of the diaphragm with increased lucency of the lungs. No evidence o f pneumothorax, pleural effusion or focal consolidation. Pulmonary vascularity: Unremarkable. Heart/mediastinum: Cardiomediastinal silhouette is unremarkable. Musculoskeletal: No acute osseous pathology. IMPRESSION: 1. No acute cardiopulmonary disease process. 2. COPD changes.
[2022-10-02 11:11] LABS: Basophils # (A) 0.1 k/uL (0-0.2); Basophils % (A) 1 %; Eosinophils # (A) 1.3 k/uL (0-0.7); Eosinophils % (A) 18 %; HCT 41.4 % (39.0-53.0); Lymphocytes % (A) 26 %; MCH 33.1 pg (25.0-35.0); MCHC 33.8 g/dL (31.0-37.0); Mean Platelet Volume 7.8; Monocytes # (A) 0.5 k/uL (0-1.0); Monocytes % (A) 7 %; Neutrophils # (A) 3.6 k/uL (1.3-7.7); Neutrophils % (A) 47 %; Platelet Count 216 k/uL (150-450); RBC 4.23 m/uL (4.30-5.90); RDW 13.1 % (11.5-15.5); WBC 7.6 k/uL (3.8-10.6)
[2022-10-02 11:26] LABS: Partial Thromboplastin Time 27.7 sec (22.0-30.0); Prothrombin Time 10.7 sec (9.0-12.0)
[2022-10-02 11:29] LABS: ALT 37 U/L (4-49); AST 34 U/L (17-59); African American GFR (CKD) >90 (>60 ml/min/1.73 sqM); Albumin 4.3 g/dL (3.5-5.0); Alkaline Phosphatase 71 U/L (38-126); Anion Gap 5 mmol/L; Blood Urea Nitrogen 15 mg/dL (9-20); Calcium 9.3 mg/dL (8.4-10.2); Carbon Dioxide 30 mmol/L (22-30); Chloride 104 mmol/L (98-107); Glucose 84 mg/dL (74-99); Magnesium 1.7 mg/dL (1.6-2.3); Non-African American GFR(CKD) >90 (>60 ml/min/1.73 sqM); Potassium 4.4 mmol/L (3.5-5.1); Sodium 139 mmol/L (137-145); Total Bilirubin 0.6 mg/dL (0.2-1.3); Total Protein 8.3 g/dL (6.3-8.2)
[2022-10-02] MEDS ORDERED: IPRATROPIUM-ALBUTEROL 3 ML NEB INHALATION STA ×2 (12:08)
[2022-10-02 12:21] VITALS: RESP 16
--- NOTE | 2022-10-02 12:36 | ED ---
General Adult HPI - General Chief complaint: Shortness of Breath Stated complaint: sob Time Seen by Provider: 10/02/22 10:12 Source: patient, RN notes reviewed, old records reviewed Mode of arrival: ambulatory Limitations: no limitations - History of Present Illness Initial comments: Patient is a 62-year-old male with past medical history remarkable for chronic tobacco use, no other past medical history presents in the department complaining of a three-day history of worsening shortness of breath has been having JANNET for over one week. Since abdominal worse over the last 3 days. Endorses a minimally productive cough of clear mucus. This is atypical for him. States he recently quit smoking within the last 1-2 weeks. He denies any chest pain, shortness of breath otherwise. Denies any nausea, vomiting, abdominal pain. States he has not been diagnosed with COPD in the past. States he is a chronic tobacco user. Presents for further evaluation at this time. No recent sick contacts. - Related Data Home Medications Medication Instructions Recorded Confirmed Methadone Intensol 1 dose PO DAILY 03/09/22 03/09/22 Previous Rx's Medication Instructions Recorded amLODIPine [Norvasc] 5 mg PO DAILY #30 tab 03/09/22 Acyclovir 800 mg PO 5XD #35 tab 09/21/22 Ibuprofen [Motrin] 800 mg PO Q8HR PRN #30 tab 09/21/22 amLODIPine [Norvasc] 5 mg PO DAILY #14 tab 09/21/22 Albuterol Inhaler [Ventolin Hfa 1 puff INHALATION QID #8 gm 10/02/22 Inhaler] Doxycycline Hyclate 100 mg PO BID 7 Days #14 capsule 10/02/22 predniSONE [Deltasone] 40 mg PO DAILY 5 Days #10 tab 10/02/22 Allergies Allergy/AdvReac Type Severity Reaction Status Date / Time No Known Allergies Allergy Verified 10/02/22 10:09 Review of Systems ROS Statement: Those systems with pertinent positive or pertinent negative responses have been documented in the HPI. Review of Systems: CONST: Denies fever EYES: Denies blurry vision ENT: Denies nasal congestion C/V: Denies Chest pain RESP: Endorses shortness of breath, cough GI: Denies abdominal pain : Denies dysuria SKIN: Denies rash. MSK: Denies joint pain. NEURO: Denies headache ROS Other: All systems not noted in ROS Statement are negative. 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 Date of last positivie culture/infection: 09/04/09 MDRO Source:: Unknown Past Surgical History: No Surgical Hx Reported Past Anesthesia/Blood Transfusion Reactions: No Reported Reaction Past Psychological History: No Psychological Hx Reported Smoking Status: Former smoker Past Alcohol Use History: None Reported Past Drug Use History: None Reported - Past Family History Mother Family Medical History: Cancer Additional Family Medical History / Comment(s): breast Brother(s) Family Medical History: Cancer Additional Family Medical History / Comment(s): colon ca, Mesothelioma General Exam - General Exam Comments Initial Comments: General: Appears in no acute distress. HEAD: Normal with no signs of head trauma. EYES: PERRLA, EOMI, conjunctiva normal, no discharge. ENT: Hearing grossly intact, normal oropharynx. RESPIRATORY: Bilateral end expiratory wheezing. C/V: Regular rate and rhythm. S1 and S2 auscultated, no edema, peripheral pulses 2+ and intact throughout ABD: Abd is soft, nontender, nondistended EXT: Normal range of motion, no obvious deformity SKIN: No rashes or lesions observed on exposed skin. NEURO: Alert and oriented 4. Limitations: no limitations Course Vital Signs 10/02/22 10/02/22 10/02/22 10:07 12:18 12:22 Temperature 97.9 F 97.9 F Pulse Rate 66 56 L 60 Respiratory 26 H 16 Rate Blood Pressure 183/87 163/88 O2 Sat by Pulse 95 94 L Oximetry 10/02/22 12:36 Temperature Pulse Rate 64 Respiratory Rate Blood Pressure O2 Sat by Pulse Oximetry Medical Decision Making - Medical Decision Making Based on the patient's presentation and physical exam, and concern for why suspect a his COPD exacerbation that is undiagnosed with possible bronchitis. Cannot rule out other infectious or pulmonary etiology at this time. Therefore we will obtain a screening EKG as well as chest x-ray and laboratory studies. He was in agreement this plan. Vital signs other than some mild increased work of breathing or within acceptable limits. EKG showed no signs of acute ischemia. Chest x-ray reveals no acute cardiopulmonary process. Does appear to have some COPD changes. Laboratory studies are remarkable for negative Covid, flu, RSV swab. Remainder the labs are within acceptable limits. Reevaluation come patient is still wheezing after using albuterol inhaler due to waiting for the Covid saw him to come back. We will administer multiple DuoNeb therapies and reevaluate. He was in agreement this plan. We discussed about his workup at until this point. If he shows improvement, he will be discharged home. On reevaluation after DuoNeb treatment patient's wheezing is improved. Work of breathing is improved. I believe it is safe for him to be discharged home at this time. He was in agreement with this plan. He was started on doxycycline for bronchitis as well as given a prescription for prednisone and albuterol inhaler. I will provide the patient with a prescription for prednisone, albuterol inhaler, doxycycline. I instructed the patient to follow up with their PCP in the next 1-3 days. I explained that the patient should return to the emergency department if they experience any worsening symptoms. Strict return precautions were discussed with the patient. The patient expressed understanding of these instructions. I answered all questions that the patient had. The patient was discharged home in good condition with their prescriptions and follow up information. Was pt. sent in by a medical professional or institution (, PA, [employer], urgent care, hospital, or shelter...) When possible be specific @ -No Did you speak to anyone other than the patient for history (EMS, parent, family, police, friend...)? What history was obtained from this source @ -No Did you review nursing and triage notes (agree or disagree)? Why? @ -I reviewed and agree with nursing and triage notes Were old charts reviewed (outside hosp., previous admission, EMS record, old EKG, old radiological studies, urgent care reports/EKG's, shelter records)? Report findings @ -Yes, prior EKG from March 2022 was reviewed as well as old charts. Differential Diagnosis (chest pain, altered mental status, abdominal pain women, abdominal pain men, vaginal bleeding, weakness, fever, dyspnea, syncope, headache, dizziness, GI bleed, back pain, seizure, CVA, palpatations, mental health)? @ -Differential Dyspnea: Coronary syndrome, arrhythmia, tamponade, asthma, COPD, pulmonary embolism, pneumonia, pneumothorax, pulmonary effusion, anaphylaxis, diabetic ketoacidosis, flailed chest, pulmonary contusion, diaphragmatic rupture, anemia, neuromuscular, this is not meant to be an all-inclusive list. EKG interpreted by me (3pts min.). @ -As above X-rays interpreted by me (1pt min.). @ -Chest x-ray revealed COPD changes but no acute process otherwise. CT interpreted by me (1pt min.). @ -None done U/S interpreted by me (1pt. min.). @ -None done What testing was considered but not performed or refused? (CT, X-rays, U/S, labs)? Why? @ -None What meds were considered but not given or refused? Why? @ -None Did you discuss the management of the patient with other professionals (professionals i.e. , PA, [employer], lab, RT, psych nurse, mental health social worker, watcher automat long goods, teacher, nursing officer, trimming caser)? Give summary @ -No Was smoking cessation discussed for >3mins.? @ -No Was critical care preformed (if so, how long)? @ -No Were there social determinants of health that impacted care today? How? (Homelessness, low income, unemployed, alcoholism, drug addiction, transportation, low edu. Level, literacy, decrease access to med. care, alf, rehab)? @ -No Was there de-escalation of care discussed even if they declined (Discuss DNR or withdrawal of care, Hospice)? DNR status @ -No What co-morbidities impacted this encounter? (DM, HTN, Smoking, COPD, CAD, Cancer, CVA, ARF, Chemo, Hep., AIDS, mental health diagnosis, sleep apnea, morbid obesity)? @ -COPD Was patient admitted / discharged? Hospital course, mention meds given and route, prescriptions, significant lab abnormalities, going to OR and other pertinent info. @ -Discharged home. See above for ED course. Undiagnosed new problem with uncertain prognosis? @ -No Drug Therapy requiring intensive monitoring for toxicity (Heparin, Nitro, Insuli n, Cardizem)? @ -No Were any procedures done? @ -No Diagnosis/symptom? @ -COPD Acute, or Chronic, or Acute on Chronic? @ -Acute on chronic Uncomplicated (without systemic symptoms) or Complicated (systemic symptoms)? @ -Un-Complicated Side effects of treatment? @ -No Exacerbation, Progression, or Severe Exacerbation? @ -Exacerbation Poses a threat to life or bodily function? How? (Chest pain, [place], [place], pneumonia, PE, COPD, DKA, ARF, appy, cholecystitis, CVA, Diverticulitis, Homicidal, Suicidal, threat to staff... and all critical care pts) @ -Yes, if untreated can result in significant morbidity and mortality. Diagnosis/symptom? @ -Acute bronchitis Acute, or Chronic, or Acute on Chronic? @ -Acute Uncomplicated (without systemic symptoms) or Complicated (systemic symptoms)? @ -Uncomplicated Side effects of treatment? @ -none Exacerbation, Progression, or Severe Exacerbation] @ -no Poses a threat to life or bodily function? @ -Yes, if untreated can result in significant morbidity and mortality. - Lab Data Result diagrams: 10/02/22 10:57 10/02/22 10:57 Lab Results 10/02/22 10/02/22 10/02/22 Range/Units 10:46 10:57 10:57 WBC 7.6 (3.8-10.6) k/uL RBC 4.23 L (4.30-5.90) m/uL Hgb 14.0 (13.0-17.5) gm/dL Hct 41.4 (39.0-53.0) % MCV 98.0 (80.0-100.0) fL MCH 33.1 (25.0-35.0) pg MCHC 33.8 (31.0-37.0) g/dL RDW 13.1 (11.5-15.5) % Plt Count 216 (150-450) k/uL MPV 7.8 Neutrophils % 47 % Lymphocytes % 26 % Monocytes % 7 % Eosinophils % 18 % Basophils % 1 % Neutrophils # 3.6 (1.3-7.7) k/uL Lymphocytes # 2.0 (1.0-4.8) k/uL Monocytes # 0.5 (0-1.0) k/uL Eosinophils # 1.3 H (0-0.7) k/uL Basophils # 0.1 (0-0.2) k/uL PT 10.7 (9.0-12.0) sec INR 1.0 (<1.2) APTT 27.7 (22.0-30.0) sec Sodium (137-145) mmol/L Potassium (3.5-5.1) mmol/L Chloride (98-107) mmol/L Carbon Dioxide (22-30) mmol/L Anion Gap mmol/L BUN (9-20) mg/dL Creatinine (0.66-1.25) mg/dL Est GFR (CKD-EPI)AfAm (>60 ml/min/1.73 sqM) Est GFR (CKD-EPI)NonAf (>60 ml/min/1.73 sqM) Glucose (74-99) mg/dL Calcium (8.4-10.2) mg/dL Magnesium (1.6-2.3) mg/dL Total Bilirubin (0.2-1.3) mg/dL AST (17-59) U/L ALT (4-49) U/L Alkaline Phosphatase (38-126) U/L Total Protein (6.3-8.2) g/dL Albumin (3.5-5.0) g/dL Influenza Type A (PCR) Not Detected (Not Detectd) Influenza Type B (PCR) Not Detected (Not Detectd) RSV (PCR) Not Detected (Not Detectd) SARS-CoV-2 (PCR) Not Detected (Not Detectd) 10/02/22 Range/Units 10:57 WBC (3.8-10.6) k/uL RBC (4.30-5.90) m/uL Hgb (13.0-17.5) gm/dL Hct (39.0-53.0) % MCV (80.0-100.0) fL MCH (25.0-35.0) pg MCHC (31.0-37.0) g/dL RDW (11.5-15.5) % Plt Count (150-450) k/uL MPV Neutrophils % % Lymphocytes % % Monocytes % % Eosinophils % % Basophils % % Neutrophils # (1.3-7.7) k/uL Lymphocytes # (1.0-4.8) k/uL Monocytes # (0-1.0) k/uL Eosinophils # (0-0.7) k/uL Basophils # (0-0.2) k/uL PT (9.0-12.0) sec INR (<1.2) APTT (22.0-30.0) sec Sodium 139 (137-145) mmol/L Potassium 4.4 (3.5-5.1) mmol/L Chloride 104 (98-107) mmol/L Carbon Dioxide 30 (22-30) mmol/L Anion Gap 5 mmol/L BUN 15 (9-20) mg/dL Creatinine 0.81 (0.66-1.25) mg/dL Est GFR (CKD-EPI)AfAm >90 (>60 ml/min/1.73 sqM) Est GFR (CKD-EPI)NonAf >90 (>60 ml/min/1.73 sqM) Glucose 84 (74-99) mg/dL Calcium 9.3 (8.4-10.2) mg/dL Magnesium 1.7 (1.6-2.3) mg/dL Total Bilirubin 0.6 (0.2-1.3) mg/dL AST 34 (17-59) U/L ALT 37 (4-49) U/L Alkaline Phosphatase 71 (38-126) U/L Total Protein 8.3 H (6.3-8.2) g/dL Albumin 4.3 (3.5-5.0) g/dL Influenza Type A (PCR) (Not Detectd) Influenza Type B (PCR) (Not Detectd) RSV (PCR) (Not Detectd) SARS-CoV-2 (PCR) (Not Detectd) - EKG Data -: EKG Interpreted by Me EKG Comments: 12-lead Electrocardiogram Interpretation Note EKG was reviewed and interpreted by myself. 12-lead ECG performed at 1028 is interpreted by me as revealing normal sinus rhythm at a rate of 61 beats per minute. [place] is mildly leftward deviated. ND interval is 186 seconds, QRS duration is 113 ms, QTc is 452 ms.. There were no ST or T wave abnormalities to suggest myocardial ischemia or injury. R wave progression across the precordium was satisfactory. By my interpretation this EKG is non-diagnostic for acute i schemia. When compared with EKG from March 2022, no significant change. Disposition Clinical Impression: COPD (chronic obstructive pulmonary disease), Bronchitis Disposition: ADMITTED IP TO THIS HOSP Condition: Good Instructions (If sedation given, give patient instructions): Acute Bronchitis (ED), COPD (Chronic Obstructive Pulmonary Disease) (ED) Prescriptions: predniSONE [Deltasone] 40 mg PO DAILY 5 Days #10 tab Doxycycline Hyclate 100 mg PO BID 7 Days #14 capsule Albuterol Inhaler [Ventolin Hfa Inhaler] 1 puff INHALATION QID #8 gm Is patient prescribed a controlled substance at d/c from ED?: No Referrals: None,Stated [Primary Care Provider] - 1-2 days Time of Disposition: 12:34
[2022-10-02] MEDS ORDERED: DOXYCYCLINE 100 MG CAP PO STA (13:06)
[2022-10-02 13:21] VITALS: BP 147/83; PULSE 75; TEMP 98.2
== END 2022-10-02 13:27 | disposition home or self-care (01) ==
LOC: EC 09:57
DX: J44.9 Chronic obstructive pulmonary disease, unspecified (principal); Z20.822 Contact with and (suspected) exposure to COVID-19; Z87.891 Personal history of nicotine dependence
CPT/HCPCS: 36415; 94640; 93005; 80053; 83735; 85025; 85610; 85730; 87636; 71046; 99285; 96365; 96375; J2930; J3475

== ENCOUNTER 2022-12-21 13:50 | Emergency (ER) | payer OTHER ==
[2022-12-21] MEDS ORDERED: ONDANSETRON ODT 4 MG TAB PO STA (14:43)
[2022-12-21] MEDS ORDERED: IBUPROFEN 600 MG TAB PO STA (14:57)
[2022-12-21] MEDS ORDERED: ACETAMINOPHEN TAB 500 MG TAB PO STA (14:57)
--- NOTE | 2022-12-21 15:33 | XR ---
EXAMINATION TYPE: XR chest 2V DATE OF EXAM: 12/21/2022 COMPARISON: 10/02/2022 INDICATION: Difficulty breathing flulike symptoms TECHNIQUE: Frontal and lateral views of the chest are obtained. FINDINGS: The heart size is normal. The pulmonary vasculature is normal. The lungs are clear. There is hyperinflation and flattened diaphragms compatible with COPD. IMPRESSION: 1. No acute pulmonary process. 2 COPD
--- NOTE | 2022-12-21 17:03 | ED ---
General Adult HPI - General Chief complaint: Nausea/Vomiting/Diarrhea Stated complaint: not feeling well Time Seen by Provider: 12/21/22 14:05 Source: patient, RN notes reviewed, old records reviewed Mode of arrival: ambulatory Limitations: no limitations - History of Present Illness Initial comments: This is a 62-year-old male who presents to the emergency department stating said 6 days of illness per patient states he has nausea vomiting over the last 4 days but the last 2 days he has not vomited. Patient denies any diarrhea. Patient states she's been a little congested and has had occasional cough. Patient denies sore throat. Patient denies any loss of taste or smell. Patient denies chest pain palpitations difficulty breathing. Patient denies any fever or chills. Patient did have a fever here for 100.9. Patient denies any abdominal pain patient denies any other problems at this time - Related Data Home Medications Medication Instructions Recorded Confirmed Aspirin/Acetaminophen/Caffeine 2 tab PO Q6H PRN 12/21/22 12/21/22 [Excedrin Extra Strength Caplet] Allergies Allergy/AdvReac Type Severity Reaction Status Date / Time No Known Allergies Allergy Verified 12/21/22 15:31 Review of Systems ROS Statement: Those systems with pertinent positive or pertinent negative responses have been documented in the HPI. ROS Other: All systems not noted in ROS Statement are negative. 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 Date of last positivie culture/infection: 09/04/09 MDRO Source:: Unknown Past Surgical History: No Surgical Hx Reported Past Anesthesia/Blood Transfusion Reactions: No Reported Reaction Past Psychological History: No Psychological Hx Reported Smoking Status: Former smoker Past Alcohol Use History: None Reported Past Drug Use History: None Reported - Past Family History Mother Family Medical History: Cancer Additional Family Medical History / Comment(s): breast Brother(s) Family Medical History: Cancer Additional Family Medical History / Comment(s): colon ca, Mesothelioma General Exam - General Exam Comments Initial Comments: GENERAL: Patient is well-developed and well-nourished. Patient is nontoxic and well- hydrated and is in mild distress. ENT: Neck is soft and supple. No significant lymphadenopathy is noted. Oropharynx is clear. Moist mucous membranes. Neck has full range of motion without eliciting any pain. EYES: The sclera were anicteric and conjunctiva were pink and moist. Extraocular movements were intact and pupils were equal round and reactive to light. Eyelids were unremarkable. PULMONARY: Unlabored respirations. Good breath sounds bilaterally. No audible rales rhonchi or wheezing was noted. CARDIOVASCULAR: There is a regular rate and rhythm without any murmurs gallops or rubs. ABDOMEN: Soft and nontender with normal bowel sounds. SKIN: Skin is clear with no lesions or rashes and otherwise unremarkable. NEUROLOGIC: Patient is alert and oriented x3. Cranial nerves II through XII are grossly intact. Motor and sensory are also intact. Normal speech, volume and content. Symmetrical smile. MUSCULOSKELETAL: Normal extremities with adequate strength and full range of motion. LYMPHATICS: No significant lymphadenopathy is noted PSYCHIATRIC: Normal psychiatric evaluation. Limitations: no limitations Course Vital Signs 12/21/22 12/21/22 12/21/22 14:02 14:45 15:05 Temperature 98.7 F 100.9 F H 100.9 F H Pulse Rate 77 59 L Respiratory 18 20 Rate Blood Pressure 161/81 161/87 O2 Sat by Pulse 97 96 Oximetry Medical Decision Making - Medical Decision Making Was pt. sent in by a medical professional or institution (, PA, TIME CLOCK MECHANIC, urgent care, hospital, or usp...) When possible be specific @ -No Did you speak to anyone other than the patient for history (EMS, parent, family, police, friend...)? What history was obtained from this source @ -No Did you review nursing and triage notes (agree or disagree)? Why? @ -I reviewed and agree with nursing and triage notes Were old charts reviewed (outside hosp., previous admission, EMS record, old EKG, old radiological studies, urgent care reports/EKG's, usp records)? Report findings @ -No old charts were reviewed Differential Diagnosis (chest pain, altered mental status, abdominal pain women, abdominal pain men, vaginal bleeding, weakness, fever, dyspnea, syncope, headache, dizziness, GI bleed, back pain, seizure, CVA, palpatations, mental health, musculoskeletal)? @ -Differential Fever: Pneumonia, viral URI, endocarditis, myocarditis, pericarditis, otitis, sinusitis, peritonsillar Abscess, retropharyngeal Abscess, epiglottitis, stanton tonitis, appendicitis, Mandy cystitis, diverticulitis, hepatitis, colitis, UTI, PID, TOA, pyelonephritis, prostatitis, epididymitis, meningitis, encephalitis, pulmonary embolism, CVA, thyroid storm, pancreatitis, adrenal crisis, cavernous sinus thrombosis, this is not meant to be an all-inclusive list. EKG interpreted by me (3pts min.). @ -As above X-rays interpreted by me (1pt min.). @ -Chest x-ray was interpreted by myself I see no acute abnormality. CT interpreted by me (1pt min.). @ -None done U/S interpreted by me (1pt. min.). @ -None done What testing was considered but not performed or refused? (CT, X-rays, U/S, labs)? Why? @ -None What meds were considered but not given or refused? Why? @ -None Did you discuss the management of the patient with other professionals (professionals i.e. , PA, TIME CLOCK MECHANIC, lab, RT, psych nurse, psychotherapist social worker, paper wood cutter, teacher, fire prevention officer, case coordinator)? Give summary @ -No Was smoking cessation discussed for >3mins.? @ -No Was critical care preformed (if so, how long)? @ -No Were there social determinants of health that impacted care today? How? (Homelessness, low income, unemployed, alcoholism, drug addiction, transportation, low edu. Level, literacy, decrease access to med. care, long term, rehab)? @ -No Was there de-escalation of care discussed even if they declined (Discuss DNR or withdrawal of care, Hospice)? DNR status @ -No What co-morbidities impacted this encounter? (DM, HTN, Smoking, COPD, CAD, Cancer, CVA, ARF, Chemo, Hep., AIDS, mental health diagnosis, sleep apnea, morbid obesity)? @ -None Was patient admitted / discharged? Hospital course, mention meds given and route, prescriptions, significant lab abnormalities, going to OR and other pertinent info. @ -Patient's chest x-ray showed no acute abnormality. Patient was no distress patient will be discharged home. Undiagnosed new problem with uncertain prognosis? @ -No Drug Therapy requiring intensive monitoring for toxicity (Heparin, Nitro, Insulin, Cardizem)? @ -No Were any procedures done? @ -No Diagnosis/symptom? @ -COVID Acute, or Chronic, or Acute on Chronic? @ -Acute Uncomplicated (without systemic symptoms) or Complicated (systemic symptoms)? @ -Uncomplicated Side effects of treatment? @ -No Exacerbation, Progression, or Severe Exacerbation? @ -No Poses a threat to life or bodily function? How? (Chest pain, [place], [place], pneumonia, PE, COPD, DKA, ARF, appy, cholecystitis, CVA, Diverticulitis, Homicidal, Suicidal, threat to staff... and all critical care pts) @ -No - Lab Data Lab Results 12/21/22 Range/Units 15:04 Influenza Type A (PCR) Not Detected (Not Detectd) Influenza Type B (PCR) Not Detected (Not Detectd) RSV (PCR) Not Detected (Not Detectd) SARS-CoV-2 (PCR) Detected A (Not Detectd) Disposition Clinical Impression: COVID-19 Disposition: HOME SELF-CARE Condition: Good Instructions (If sedation given, give patient instructions): Coronavirus Disease 2019 (COVID-19) Is patient prescribed a controlled substance at d/c from ED?: No Referrals: None,Stated [Primary Care Provider] - 1-2 days Time of Disposition: 17:03
[2022-12-21 17:11] VITALS: BP 165/82; PULSE 60; RESP 16; TEMP 99
== END 2022-12-21 17:11 | disposition home or self-care (01) ==
LOC: EC 13:50
DX: U07.1 COVID-19 (principal); Z87.891 Personal history of nicotine dependence
CPT/HCPCS: 71046; 87636; 99284

== ENCOUNTER → 2023-12-21 | Outpatient (CLI) | payer MEDICARE, OTHER ==
--- NOTE | 2023-12-21 14:32 | USB ---
Reason for Exam: Clinical finding. Patient History: Mother had breast cancer at or over age 50. Technique: Method: Targeted. Doppler: Color. Patient Position: Supine. Prior Study Comparison: No prior studies available for comparison. Findings: The area of palpable concern of the left breast, the periareolar of the left breast, the axilla of the left breast and the retroareolar of the left breast were scanned. Electronically signed and approved by: Nabil Lozada D.O. Radiologis
--- NOTE | 2023-12-21 14:33 | MM ---
Reason for Exam: Clinical finding. Indicated Problems: Lump or thickening of the left side for 1 Month(s). Patient History: Mother had breast cancer at or over age 50. Tissue Density: The breasts are almost entirely fatty. Findings: Analyzed By CAD. In the subareolar left breast there is a flamelike appearance to the area of increased density compatible left-sided gynecomastia. There are some calcifications in the superficial portion of the breast. No suspicious groups of microcalcifications, spiculated or lobular masses, architectural distortion or other secondary signs of malignancy are mammographically apparent. Overall Assessment: Incomplete: need additional imaging evaluation, BI-RAD 0 Management: Diagnostic Breast Ultrasound of the left breast. A negative mammogram report should not preclude additional follow up of suspicious palpable abnormalities. Patient should continue monthly self breast exam. A clinical breast exam by your physician is recommended on an annual basis and results should be correlated with mammographic findings. Note on Nia scores and lifetime risk: 1. A Nia score greater than 3% is considered moderate risk. If this is the case, consider specialist referral to assess eligibility for a risk reducing agent. 2. If overall lifetime risk for the development of breast cancer is 20% or higher, the patient may qualify for future screening with alternating mammogram and breast MRI. Electronically signed and approved by: Nabil Lozada D.O. Radiologis
== END | disposition home or self-care (01) ==
LOC: RADMAMWWP 13:06
PROVIDERS: ATTEND Family Medicine
DX: R92.313 Mammographic fatty tissue density, bilateral breasts (principal); R92.1 Mammographic calcification found on diagnostic imaging of breast; N63.42 Unspecified lump in left breast, subareolar; Z80.3 Family history of malignant neoplasm of breast
CPT/HCPCS: 77066; 76642; G0279; 77062

== ENCOUNTER → 2023-12-29 | Day surgery (SDC) | payer MEDICARE, OTHER ==
--- NOTE | 2024-01-04 09:28 | MM ---
Reason for Exam: Post Procedure Mammogram. Last screening mammogram was performed less than 1 month ago. Patient History: Mother had breast cancer at or over age 50. Prior Study Comparison: 12/21/2023 Left US breast limited , [facility]. 12/21/2023 Bilateral MG 3D diag mammo w/cad [facility], [facility]. Tissue Density: Left: The breasts are almost entirely fatty. Pathology Description: Location: 9 o'clock. Needle Type: Celero Cores: 3 Gauge: 13 The procedure of ultrasound guided core biopsy was explained to the patient. Benefits, alternatives, and risks were discussed. An informed consent was then obtained. The patient was placed in supine positioning for imaging and for the procedure. The overlying skin was prepped and draped in usual sterile fashion. Lidocaine buffered with bicarbonate was used as anesthetic into the skin and subcutaneous tissue up to area of concern in the left 9:00 breast. A mariela was made with surgical scalpel. Under ultrasound guidance, a 12-gauge vacuum assisted biopsy gun device was used to obtain 3 core samples. Following this, a biopsy clip was left in lesion. The patient tolerated the procedure well without any immediate complication. The patient was kept in the radiology department for short stay after the procedure and then discharged home in stable condition. Postprocedure mammogram: The patient was transferred to mammography for physician ordered post procedure mammogram for clip placement verification. Impression: Successful, uncomplicated ultrasound guided core biopsy of area of concern in the left 9:00 breast, full pathology results to follow. Pathology Results: Result: Benign, Fibroadipose tissue. Pathology and radiology were reviewed. Findings are concordant. LEFT BREAST, 9:00, 3 CM FROM NIPPLE, NEEDLE CORE BIOPSY: Benign fibroadipose tissue with features suggestive of possible lipoma. Ductal breast elements are not identified. Overall Assessment: Benign Assessment: MG diagnostic mammo LT wo CAD. - Left: Benign, BI-RAD 2. Management: Diagnostic Mammogram of the left breast in 6 months. Electronically signed and approved by: Pete Romreo M.D. Radiologis
== END ==
LOC: RADUSWWP 12:29
PROVIDERS: ATTEND Surgery
DX: R92.8 Other abnormal and inconclusive findings on diagnostic imaging of breast (principal); Z80.3 Family history of malignant neoplasm of breast
CPT/HCPCS: 88305; 77065; 19083; A4648